=== PATIENT | male | born 1960 | race Hispanic/Latino ===

== ENCOUNTER 2017-12-19 06:56 | Inpatient (IN) | payer MEDICAID, OTHER ==
[2017-12-19 07:11] VITALS: BMI 26.1
--- NOTE | 2017-12-19 08:16 | ED PDOC ---
Lower Extremity Pain/Injury Time Seen by Provider: 12/19/17 07:00 Chief Complaint (Nursing): Lower Extremity Problem/Injury Chief Complaint (Provider): Left knee pain History Per: Patient History/Exam Limitations: no limitations Onset/Duration Of Symptoms: Days (x2 weeks) Current Symptoms Are (Timing): Still Present Additional Complaint(s): 57 year old male presents to the emergency department with complaints of left knee pain onset two weeks prior. Patient has a history of left knee surgery in 2011 to which he states he subsequnetly had to have a spacer put in and have intravenous antibiotics due to an infection s/p surgery. He notes he has been taking Advil for the pain, swelling and intermittent fever, but today the pain became too unbearable. Denies any recent injury or fall. PMD: Geovanny Mcgregor III Past Medical History Reviewed: Historical Data, Nursing Documentation, Vital Signs Vital Signs: Last Vital Signs Temp 98.7 F 12/19/17 07:11 Pulse 106 H 12/19/17 07:11 Resp BP 142/86 12/19/17 07:11 Pulse Ox 98 12/19/17 07:24 - Medical History PMH: Anxiety Denies: Chronic Kidney Disease - Surgical History Other surgeries: total left hip, total left knee, right arm rods placement - Family History Family History: States: Unknown Family Hx - Social History Current smoker - smoking cessation education provided: No Alcohol: None Drugs: Denies - Home Medications Home Medications: Ambulatory Orders Medication Instructions Recorded Ibuprofen [Advil] 400 mg PO Q6 PRN 12/19/17 - Allergies Allergies/Adverse Reactions: Allergies Allergy/AdvReac Type Severity Reaction Status Date / Time codeine Allergy Mild RASH Verified 12/19/17 07:23 morphine Allergy Mild RASH Verified 12/19/17 07:20 Review of Systems ROS Statement: Except As Marked, All Systems Reviewed And Found Negative Constitutional: Positive for: Fever (intermittent) Musculoskeletal: Positive for: Leg Pain (left knee, with swelling) Physical Exam - Reviewed Nursing Documentation Reviewed: Yes Vital Signs Reviewed: Yes - Physical Exam Appears: Positive for: No Acute Distress Head Exam: Positive for: ATRAUMATIC, NORMOCEPHALIC Skin: Positive for: Normal Color, Warm, Dry Eye Exam: Positive for: Normal appearance Neck: Positive for: Normal Cardiovascular/Chest: Positive for: Regular Rate, Rhythm. Negative for: Murmur Respiratory: Positive for: Normal Breath Sounds. Negative for: Accessory Muscle Use, Respiratory Distress Gastrointestinal/Abdominal: Positive for: Normal Exam Extremity: Positive for: Tenderness (diffuse, left knee), Swelling (to left knee ). Negative for: Other (erythema to left knee) Neurologic/Psych: Positive for: Alert (and awake), Oriented (x3) - Laboratory Results Result Diagrams: 12/20/17 04:55 12/20/17 04:55 - ECG O2 Sat by Pulse Oximetry: 98 (RA) Pulse Ox Interpretation: Normal Medical Decision Making Medical Decision Making: Initial Impression: left knee pain rule out infection, evaluation by Dr Mcgregor requested for possible aspiration Time: :18 Initial Plan: --CMP --CBC with differential --Blood culture --Urine culture --Urinalysis --Type and screen --Ortho consult --PT 08:40 Case discussed with ortho ALESSANDRA Cohn, and patient will be admitted to Hospitalist (Dr belia cline) and Dr. Mcgregor will see patient Scribe Attestation: Documented by Bere Shultz, acting as a scribe for Jeramy Sr MD Provider Scribe Attestation: All medical entries made by the Scribe were at my direction and personally dictated by me. I have reviewed the chart and agree that the record accurately reflects my personal performance of the history, physical exam, medical decision making, and the department course for this patient. I have also personally directed, reviewed, and agree with the discharge instructions and disposition. Disposition - Clinical Impression Clinical Impression: Septic joint of left knee joint - Patient ED Disposition Is Patient to be Admitted: Yes - Disposition Disposition Time: 09:00 Condition: FAIR
--- NOTE | 2017-12-19 08:35 | CP.PCM.CON ---
History of Present Illness - History of Present Illness History of Present Illness: Orthopedic consultation Patient is a 57 y/o male with PMH of chronic kidney disease and anxiety, presents to the ER due to severe left knee pain, fevers and swelling. The patient has a history of a partial left knee replacement performed in [address] Mcgregor. In July 2017, the patient was admitted to [facility] due to left knee pain and it was determined that the patient had developed a left knee septic joint. He then subsequently underwent removal of hardware and placement of an antibiotic spacer by another pain management specialist. He was also placed on IV antibiotics postop. Over the past week, he experienced progressive left knee pain and swelling, as well as fevers. The pain is sharp and severe making him unable to place any weight to the LLE or pressure to the left knee. He denies any radiation of pain, numbness or tingling. He also denies CP/SOB/N/V/D/dysuria/melena. Dr. Mcgregor was consulted for orthopedic evaluation. Review of Systems - Review of Systems All systems: reviewed and no additional remarkable complaints except Review of Systems: as per HPI Past Patient History - Past Medical History & Family History Past Medical History?: Yes Past Family History: Reviewed and not pertinent - Past Social History Smoking Status: Never Smoked Alcohol: None Drugs: Denies - CARDIAC Hx Cardiac Disorders: No - PULMONARY Hx Respiratory Disorders: No - NEUROLOGICAL Hx Neurological Disorder: No - HEENT Hx HEENT Problems: No - RENAL Hx Chronic Kidney Disease: Yes - ENDOCRINE/METABOLIC Hx Endocrine Disorders: No - HEMATOLOGICAL/ONCOLOGICAL Hx Blood Disorders: No - INTEGUMENTARY Hx Dermatological Problems: No - MUSCULOSKELETAL/RHEUMATOLOGICAL Hx Musculoskeletal Disorders: Yes Other/Comment: L ZACH, R radius mid shaft fx ORIF, R big toe amputation - GASTROINTESTINAL Hx Gastrointestinal Disorders: No - GENITOURINARY/GYNECOLOGICAL Hx Genitourinary Disorders: No - PSYCHIATRIC Hx Anxiety: Yes - SURGICAL HISTORY Hx Surgeries: Yes Hx Orthopedic Surgery: Yes Other/Comment: L ZACH, R radius mid shaft fx ORIF, R big toe amputation,partial left knee replacement, L knee removal of hardware & placement of antibiotic spacer - ANESTHESIA Hx Anesthesia: Yes Hx Anesthesia Reactions: No Hx Malignant Hyperthermia: No Meds Allergies/Adverse Reactions: Allergies Allergy/AdvReac Type Severity Reaction Status Date / Time codeine Allergy Mild RASH Verified 12/19/17 07:23 morphine Allergy Mild RASH Verified 12/19/17 07:20 - Medications Medications: OTC advil prn Physical Exam - Constitutional Appears: Well, No Acute Distress - Head Exam Head Exam: ATRAUMATIC, NORMOCEPHALIC - Eye Exam Eye Exam: EOMI, Normal appearance, PERRL - ENT Exam ENT Exam: Mucous Membranes Moist, Normal Exam - Respiratory Exam Respiratory Exam: Clear to Auscultation Bilateral, NORMAL BREATHING PATTERN - Cardiovascular Exam Cardiovascular Exam: REGULAR RHYTHM - GI/Abdominal Exam GI & Abdominal Exam: Normal Bowel Sounds, Soft - Extremities Exam Additional comments: L knee: moderate swelling and effusion, old anterior knee scar, + diffuse tenderness, +guarding ROM 0-30 deg sensation intact SP/DP/TN motor intact EHL/FHL/TA/G/Q/HS/HF pedal pulses intact comp soft and NT R knee: no swelling no tenderness, no lesions sensation intact SP/DP/TN motor intact EHL/FHL/TA/G/Q/HS/HF pedal pulses intact comp soft and NT - Neurological Exam Neurological exam: Alert, Oriented x3 - Psychiatric Exam Psychiatric exam: Normal Affect, Normal Mood - Skin Skin Exam: Normal Color, Warm Results - Vital Signs Recent Vital Signs: Last Vital Signs Temp 98.7 F 12/19/17 07:11 Pulse 106 H 12/19/17 07:11 Resp BP 142/86 12/19/17 07:11 Pulse Ox 98 12/19/17 08:32 - Labs Result Diagrams: 12/19/17 09:01 12/19/17 09:01 Assessment & Plan (1) Septic joint of left knee joint Assessment and Plan: Patient is a 57 y/o male with a septic left knee s/p abx spacer placement -NPO -Routine labs, CRP, ESR -Left knee xray and CT -Admit to hospitalist, medical clearance -Consult Dr. Alberto MACK for abx coverage and Dr. Rodriguez for cardiac clearance -Plan for left knee aspiration today and removal of spacer/primary TKA on Tuesday -above d/w Dr. Mcgregor in agreement Status: Acute - Date & Time Date: 12/19/17 Time: 08:34
[2017-12-19 09:13] LABS: BASO % 0.3 % (0.0-2.0); EOS # 0.1 K/uL (0.0-0.7); EOS % 1.6 % (0.0-4.0); HEMOGLOBIN 15.2 g/dL (12.0-18.0); LYMPH # 1.5 K/uL (1.0-4.3); LYMPH % 17.6 % (20.0-40.0); MEAN CELL VOLUME 64.4 fl (80.0-94.0); MEAN CORPUSCULAR HEMOGLOBIN 20.9 pg (27.0-31.0); MEAN CORPUSCULAR HGB CONC 32.5 g/dL (33.0-37.0); MONO # 0.7 K/uL (0.0-0.8); NEUT # 6.2 K/uL (1.8-7.0); NEUT % 72.5 % (50.0-75.0); NRBC % 0.2 % (0.0-0.0); RBC 7.29 Mil/uL (4.40-5.90); WHITE BLOOD COUNT 8.6 K/uL (4.8-10.8)
[2017-12-19 09:16] LABS: URINE BILIRUBIN NEGATIVE (NEGATIVE); URINE BLOOD NEGATIVE (NEGATIVE); URINE CLARITY CLEAR (Clear); URINE COLOR YELLOW (YELLOW); URINE GLUCOSE (UA) NEG (Normal); URINE LEUKOCYTE ESTERASE NEG Leu/uL (Negative); URINE PROTEIN NEGATIVE (NEGATIVE); URINE UROBILINOGEN 0.2-1.0 mg/dL (0.2-1.0)
[2017-12-19] MEDS ORDERED: methylPREDNISolone Depo 80 mg/ml Inj ONE (09:16)
[2017-12-19] MEDS ORDERED: Iohexol 300 100 ML IJ ONE (09:16)
[2017-12-19] MEDS ORDERED: Bupivacaine HCl 0.25% PF (30 ml) Inj ONE (09:18)
--- NOTE | 2017-12-19 09:18 | RAD ---
HISTORY: knee pain COMPARISON: Chest radiograph 07/31/2015. FINDINGS: LUNGS: No active pulmonary disease. PLEURA: No significant pleural effusion identified, no pneumothorax apparent. CARDIOVASCULAR: Normal. OSSEOUS STRUCTURES: No significant abnormalities. VISUALIZED UPPER ABDOMEN: Normal. OTHER FINDINGS: None. IMPRESSION: No interval acute cardiopulmonary disease appreciated.
[2017-12-19 09:19] LABS: INR 0.9 (0.9-1.2)
[2017-12-19 09:36] LABS: ALB/GLOB RATIO 1.1 (1.0-2.1); ALBUMIN 4.1 g/dL (3.5-5.0); ALT/SGPT 35 U/L (21-72); AST/SGOT 25 U/L (17-59); BLOOD UREA NITROGEN 32 mg/dl (9-20); CALCIUM 9.6 mg/dL (8.4-10.2); GFR AFRICAN-AMERICAN > 60; GFR NON-AFRICAN AMERICAN 57
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
[2017-12-19] MEDS ORDERED: HYDROmorphone 0.5 mg/0.5 ml ISec IVP STA (09:53)
[2017-12-19] MEDS ORDERED: HYDROmorphone 0.5 mg/0.5 ml ISec ONE (09:57)
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
[2017-12-19] MEDS ORDERED: Propofol 10 mg/ml Inj (20 ML) ONE (13:40)
[2017-12-19] MEDS ORDERED: Lactated Ringer's 1,000 ML IV ONE (13:40)
[2017-12-19] MEDS ORDERED: Succinylcholine 200 mg/10 ml Inj IV ONE (13:47)
[2017-12-19] MEDS ORDERED: Rocuronium 10 mg/ml (5 ml) ONE ×2 (13:53→14:14)
[2017-12-19] MEDS ORDERED: Bacitracin Ointment 30 GM TUBE ONE (14:26)
[2017-12-19] MEDS ORDERED: Neostigmine 1:1000 (1 mg/ml) Inj ONE (14:35)
--- NOTE | 2017-12-19 14:36 | PCM.SURG1 ---
Surgeon's Initial Post Op Note - Surgeon's Notes Surgeon: Meche Compliance Associate: IGGY Iyer Type of Anesthesia: General Endo Anesthesia Administered By: DR Edgar Pre-Operative Diagnosis: s/.p septic L unicompartmental replacement. r/o recurrent sepsis Operative Findings: as above Post-Operative Diagnosis: r/o septic knee s/p removal L UKR and insertion of abio impreganted spacer Operation Performed: Aspiration arthrogram L knee. Manipulation L knee under anaesthesia. positiion of fluoro/interpetation of video images Specimen/Specimens Removed: aspirate- synvoial fluid/ arthrogram fluid Estimated Blood Loss: EBL {In ML}: 2 Blood Products Given: N/A Drains Used: No Drains Post-Op Condition: Good Date of Surgery/Procedure: 12/19/17 Time of Surgery/Procedure: 14:20 (time in room 1340)
[2017-12-19] MEDS ORDERED: HYDROmorphone 0.5 mg/0.5 ml ISec IVP PRN (14:58)
[2017-12-19] MEDS ORDERED: Lactated Ringer's 1,000 ML IV SCH (15:00)
[2017-12-19 15:57] LABS: FLUID TYPE SYNOVIAL FLUID
--- NOTE | 2017-12-19 16:36 | RAD ---
PROCEDURE: Left Knee Radiographs. HISTORY: Pain. COMPARISON: Left knee CT without contrast 12/19/2017. FINDINGS: BONES: Patient is apparently status post removal of left total knee replacement hardware with antibiotic spacers in position at this time. Spaces are identified with lucency at both articular as well as distal tibial proximal femoral surfaces. Nonspecific hyperdensity is appreciate suprapatellar bursa region this may reflect eluted antibiotic. Diffuse osteopenia suggests osteoporosis. No subluxation or dislocation appreciated. Incidental note is made rated lucency deep to the orthopedic cement overlying the periosteum of the left femoral mid diaphysis. No definite pattern suggest loosening of the tip of endosteal portion of presumed left hip prosthetic device partially captured at its distal segment. JOINTS: As above. JOINT EFFUSION: As above peer OTHER FINDINGS: None. IMPRESSION: Antibiotic spaces identified status post removal of prior replacement hardware with presumed eluted antibiotic hyperdensity in the suprapatellar bursa region. No subluxation or dislocation. Note is made of lucency deep to orthopedic cement at the mid left femoral diaphysis as discussed in body of report.
[2017-12-19 16:38] LABS: SF GROSS APPEARANCE BLOODY (CLEAR)
[2017-12-19 16:39] LABS: SYNOVIAL FLUID COMMENT BLOODY
[2017-12-19 16:55] LABS: SYNOVIAL FLUID MONO/MACROPHAGE 13 % (0-0)
[2017-12-19] MEDS ORDERED: ceFAZolin IV 2 gm in Dextrose 2 GM/50 ML BAG IVPB SCH (17:00)
--- NOTE | 2017-12-19 17:15 | CT ---
PROCEDURE: CT of the left knee without contrast. HISTORY: L knee abx spacer COMPARISON: No prior similar study available for comparison. TECHNIQUE: Axial and reformatted coronal and sagittal CT images of the left knee were obtained without contrast administration. FINDINGS: The patient is status post insertion of antibiotic spacer at the left knee joint space. There is likely prior left knee arthroplasty. There are foci of lucency seen at the distal left femur more prominent at the left femoral condyle. There are also subcortical and subchondral cystic formation seen at the left tibial plateau . There is partially imaged hardware at the mid and proximal left femur. Diffuse vascular calcification is noted. There is soft tissue edema and possible small fluid around the left knee joint. No evidence of acute fracture in the osseous structures. IMPRESSION: Status post antibiotic spacer insertion at the left knee joint. Chronic changes and multiple lytic/cystic changes noted mainly at the medial femoral condyle as described above.
[2017-12-19] MEDS: HYDROmorphone 0.5 mg/0.5 ml ISec IVP PRN ×2 (17:51→22:17)
--- NOTE | 2017-12-19 17:56 | CP.PCM.PN ---
Subjective - Date & Time of Evaluation Date of Evaluation: 12/19/17 Time of Evaluation: 17:51 - Subjective Subjective: i d note emr reviewed vancomycin started Objective - Vital Signs/Intake and Output Vital Signs (last 24 hours): Temp Pulse Resp BP Pulse Ox 97.8 F 71 20 137/82 97 12/19/17 16:42 12/19/17 16:42 12/19/17 16:42 12/19/17 16:42 12/19/17 16:42 Intake and Output: 12/19/17 12/19/17 06:59 18:59 Intake Total 300 Balance 300 - Medications Medications: Current Medications Acetaminophen (Tylenol 325mg Tab) 650 mg PO Q6 PRN PRN Reason: Fever >100.4 F Acetaminophen (Tylenol 325mg Tab) 650 mg PO Q6 PRN PRN Reason: Pain, Mild (1-3) Acetaminophen (Tylenol 325mg Tab) 650 mg PO Q4 PRN PRN Reason: Fever 101 degrees fahrenheit Docusate Sodium (Colace) 100 mg PO BID [facility]AY Hydromorphone HCl (Dilaudid) 1 mg IVP Q4 PRN PRN Reason: Pain, severe (8-10) Sodium Chloride (Sodium Chloride 0.9%) 1,000 mls @ 100 mls/hr IV .Q10H [facility]AY Lactated Ringer's (Lactated Ringer's) 1,000 mls @ 100 mls/hr IV .Q10H [facility] Cefazolin Sodium/Dextrose (Ancef Iv 2 Gm Duplex) 2 gm in 50 mls @ 50 mls/hr IVPB Q8 [facility]AY PRN Reason: Protocol Stop: 12/20/17 01:59 Lactated Ringer's (Lactated Ringer's) 1,000 mls @ 100 mls/hr IV .Q10H [facility] Vancomycin HCl 750 mg/ Sodium (Chloride) 250 mls @ 166.667 mls/hr IVPB Q12 [facility]AY PRN Reason: Protocol Ketorolac Tromethamine (Toradol) 30 mg IVP Q6 PRN PRN Reason: Pain, severe (8-10) Ondansetron HCl (Zofran Inj) 4 mg IVP Q6 PRN PRN Reason: Nausea/Vomiting Ondansetron HCl (Zofran Inj) 4 mg IVP ONCE PRN PRN Reason: Nausea/Vomiting Oxycodone/Acetaminophen (Percocet 5/325 Mg Tab) 2 tab PO Q6 PRN PRN Reason: Pain, severe (8-10) Stop: 12/22/17 16:17 Pantoprazole Sodium (Protonix Ec Tab) 40 mg PO DAILY JAY - Labs Labs: 12/19/17 09:01 12/19/17 09:01 PT 10.0 Seconds (9.8-13.1) 12/19/17 09:01 INR 0.9 (0.9-1.2) 12/19/17 09:01
[2017-12-19] MEDS: Lactated Ringer's 1,000 ML IV SCH (18:25)
[2017-12-19] MEDS: ceFAZolin IV 2 gm in Dextrose 2 GM/50 ML BAG IVPB SCH (22:00)
[2017-12-19] MEDS: Sodium Chloride 0.9% 1,000 ML IV SCH (22:00)
--- NOTE | 2017-12-19 22:29 | CARD ---
APPROVED REPORT EKG Measurement Heart [id number] <Conclusion> Normal sinus rhythm Normal ECG
[2017-12-20] MEDS: Lactated Ringer's 1,000 ML IV SCH (01:00)
[2017-12-20] MEDS: Sodium Chloride 0.9% 1,000 ML IV SCH ×4 (02:53→20:00)
[2017-12-20] MEDS: HYDROmorphone 0.5 mg/0.5 ml ISec IVP PRN ×2 (02:55→09:47)
[2017-12-20] MEDS: ceFAZolin IV 2 gm in Dextrose 2 GM/50 ML BAG IVPB SCH (05:35)
[2017-12-20 06:15] LABS: BASO % 0.1 % (0.0-2.0); EOS # 0.1 K/uL (0.0-0.7); EOS % 1.8 % (0.0-4.0); HEMOGLOBIN 13.7 g/dL (12.0-18.0); LYMPH # 1.7 K/uL (1.0-4.3); LYMPH % 21.1 % (20.0-40.0); MEAN CELL VOLUME 64.9 fl (80.0-94.0); MEAN CORPUSCULAR HEMOGLOBIN 20.7 pg (27.0-31.0); MONO # 0.6 K/uL (0.0-0.8); MONO % 6.9 % (0.0-10.0); NEUT # 5.6 K/uL (1.8-7.0); NEUT % 70.1 % (50.0-75.0); NRBC % 0.1 % (0.0-0.0); RBC 6.61 Mil/uL (4.40-5.90); RED CELL DISTRIBUTION WIDTH 15.9 % (11.5-14.5)
[2017-12-20 06:19] LABS: BLOOD UREA NITROGEN 28 mg/dl (9-20); GFR AFRICAN-AMERICAN > 60; GFR NON-AFRICAN AMERICAN 53
--- NOTE | 2017-12-20 07:43 | CP.PCM.PN ---
Subjective - Date & Time of Evaluation Date of Evaluation: 12/20/17 Time of Evaluation: 07:43 - Subjective Subjective: Patient was seen and examined at bedside comfortable. Pain is well controlled. No acute events overnight. Objective - Vital Signs/Intake and Output Vital Signs (last 24 hours): Temp Pulse Resp BP Pulse Ox 98.0 F 68 19 116/69 98 12/20/17 00:00 12/20/17 00:00 12/20/17 00:00 12/20/17 00:00 12/20/17 00:00 Intake and Output: 12/20/17 12/20/17 06:59 18:59 Output Total 800 Balance -800 - Medications Medications: Current Medications Acetaminophen (Tylenol 325mg Tab) 650 mg PO Q6 PRN PRN Reason: Fever >100.4 F Acetaminophen (Tylenol 325mg Tab) 650 mg PO Q6 PRN PRN Reason: Pain, Mild (1-3) Acetaminophen (Tylenol 325mg Tab) 650 mg PO Q4 PRN PRN Reason: Fever 101 degrees fahrenheit Docusate Sodium (Colace) 100 mg PO BID [facility] Last Admin: 12/19/17 19:29 Dose: 100 mg Hydromorphone HCl (Dilaudid) 1 mg IVP Q4 PRN PRN Reason: Pain, severe (8-10) Last Admin: 12/20/17 02:55 Dose: 1 mg Sodium Chloride (Sodium Chloride 0.9%) 1,000 mls @ 100 mls/hr IV .Q10H [facility] Last Admin: 12/20/17 02:53 Dose: 100 mls/hr Lactated Ringer's (Lactated Ringer's) 1,000 mls @ 100 mls/hr IV .Q10H [facility] Last Admin: 12/20/17 01:00 Dose: Not Given Lactated Ringer's (Lactated Ringer's) 1,000 mls @ 100 mls/hr IV .Q10H [facility] Last Admin: 12/20/17 01:00 Dose: Not Given Vancomycin HCl 750 mg/ Sodium (Chloride) 250 mls @ 166.667 mls/hr IVPB Q12 [facility] PRN Reason: Protocol Last Admin: 12/19/17 21:17 Dose: 166.667 mls/hr Ketorolac Tromethamine (Toradol) 30 mg IVP Q6 PRN PRN Reason: Pain, severe (8-10) Ondansetron HCl (Zofran Inj) 4 mg IVP Q6 PRN PRN Reason: Nausea/Vomiting Ondansetron HCl (Zofran Inj) 4 mg IVP ONCE PRN PRN Reason: Nausea/Vomiting Oxycodone/Acetaminophen (Percocet 5/325 Mg Tab) 2 tab PO Q6 PRN PRN Reason: Pain, severe (8-10) Stop: 12/22/17 16:17 Pantoprazole Sodium (Protonix Ec Tab) 40 mg PO DAILY JAY - Labs Labs: 12/20/17 04:55 12/20/17 04:55 PT 10.0 Seconds (9.8-13.1) 12/19/17 09:01 INR 0.9 (0.9-1.2) 12/19/17 09:01 - Extremities Exam Additional comments: L knee: Knee imm intact, Dressings CDI, no tenderness ROM restricted sensation intact SP/DP/TN motor intact EHL/FHL/TA/G pedal pulses intact comp soft NT Assessment and Plan (1) Septic joint of left knee joint Assessment & Plan: POD#1 L knee aspiration under fluoroscopy -f/u cultures, neg to date -pain control -PWB with walker -plan for L TKA tomorrow -NPO pMN -DVT ppx on hold -above jolie Mcgregor in agreement Status: Acute
[2017-12-20] MEDS: Pantoprazole 40 mg EC Tab PO SCH (08:17)
--- NOTE | 2017-12-20 11:02 | OP ---
PROCEDURE DATE: 12/19/2017 PREOPERATIVE DIAGNOSIS: Status post septic left unicompartmental replacement, rule out recurrent sepsis. POSTOPERATIVE DIAGNOSIS: Rule out septic knee, status post removal of left unicompartmental replacement and insertion of antibiotic-impregnated spacer. OPERATIVE FINDINGS: Rule out septic knee status post removal of left unicompartmental replacement and insertion of antibiotic-impregnated spacer. OPERATION PERFORMED: 1. Aspiration arthrogram, left knee. 2. Manipulation of left knee under anesthesia. 3. Positioning of fluoroscope and interpretation of video images. SURGEON: Geovanny Mcgregor MD REGIONAL SALES ENGINEER: Nisha Faith, certified registered nursing first aid trainer. ANESTHESIA: General endotracheal anesthesia. SPECIMENS REMOVED: Aspirate, synovial fluid/arthrography fluid. BLOOD LOSS: 2 mL. BLOOD PRODUCTS GIVEN: None. DRAINS: No drains. POSTOPERATIVE CONDITION: Stable. TIME OF SURGERY: 14:20, incision time, in the room 13:40. OPERATIVE INDICATION: Mg Barnett is a 57-year-old gentleman who had undergone successful unicompartmental left knee replacement. The patient had presented to another institution and had removal of the prosthesis and insertion of an antibiotic-impregnated spacer. The patient presents now to [facility] with questionable fever, severe pain in the knee, crepitus, inability to ambulate and stumbling in the left knee. The patient is admitted and taken to the operating room as an emergency for aspiration of the knee with reimplantation and a revision arthroplasty procedure. Pros, cons, risks, and benefits of the same were discussed with the patient, the possibility of mechanical failure, infection, thromboembolic disease, secondary or tertiary surgery was discussed. The patient can no longer withstand the discomfort and wished the surgery to be accomplished. OPERATIVE PROCEDURE: After having obtained informed consent in the above fashion, after the satisfactory induction of the anesthetic, after having identified side, site, and procedure and a critical pause/time-out, after the satisfactory induction of the anesthetic, the patient identified as Mg Barnett in the supine position with all bony prominences well padded, the left lower extremity was prepped and free draped in usual fashion for left hip arthrography. The possibility of nerve injury, mechanical failure, infection, thromboembolic disease were discussed. The patient no longer withstand the discomfort and wishes the revision to be accomplished. It was explained to him that the revision cannot be accomplished until the aspiration was accomplished. Again after sterilely prepping and draping, under the surgeon's direction, the fluoroscope was positioned, video images were generated, therapeutic decisions were made therefrom. This having been accomplished from a superolateral portal, the left knee is injected with 30 mL of radiopaque contrast, both in the superolateral portal and an infrapatellar lateral portal. This having been accomplished, the thigh having been introduced, flexion/extension is accomplished and great care was taken at this point in time to aspirate the knee. The knee was aspirated. Under the surgeon's direction, the fluoroscope was positioned, video images were generated, therapeutic decisions were made therefrom. The fact that fluid is localized in the knee joint space is confirmed. The knee was aspirated and the aliquots of fluid were sent for aerobic, anaerobic, AFB, and fungal cultures as well as stat Gram stain, number of white cells per high-power field. This having been accomplished, the fluid having been sent, the knee is manipulated. Compression dressing was applied. Neurocirculatory status intact in recovery. Awaiting results of culture prior to planning the revision arthroplasty. Geovanny Mcgregor MD
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
--- NOTE | 2017-12-20 11:51 | CP.PCM.PN ---
Subjective - Date & Time of Evaluation Date of Evaluation: 12/20/16 Time of Evaluation: 11:00 - Subjective Subjective: NO CHEST PAIN OR SOB JUST HAS LEFT KNEE SURGICAL SITE PAIN Objective - Vital Signs/Intake and Output Vital Signs (last 24 hours): Temp Pulse Resp BP Pulse Ox 98.3 F 83 19 119/78 98 12/20/17 07:57 12/20/17 09:45 12/20/17 07:57 12/20/17 07:57 12/20/17 10:07 Intake and Output: 12/20/17 12/20/17 06:59 18:59 Output Total 800 Balance -800 - Medications Medications: Current Medications Acetaminophen (Tylenol 325mg Tab) 975 mg PO Q8 [facility]AY Acetaminophen (Tylenol 325mg Tab) 650 mg PO Q6 PRN PRN Reason: FEVER > 100.3 Docusate Sodium (Colace) 100 mg PO BID [facility] Last Admin: 12/20/17 08:17 Dose: 100 mg Vancomycin HCl 750 mg/ Sodium (Chloride) 250 mls @ 166.667 mls/hr IVPB Q12 [facility]AY PRN Reason: Protocol Last Admin: 12/20/17 08:15 Dose: 166.667 mls/hr Sodium Chloride (Sodium Chloride 0.9%) 1,000 mls @ 125 mls/hr IV .Q8H [facility] Ondansetron HCl (Zofran Inj) 4 mg IVP Q6 PRN PRN Reason: Nausea/Vomiting Ondansetron HCl (Zofran Inj) 4 mg IVP ONCE PRN PRN Reason: Nausea/Vomiting Oxycodone/Acetaminophen (Percocet 5/325 Mg Tab) 2 tab PO Q6 PRN PRN Reason: Pain, severe (8-10) Stop: 12/22/17 16:17 Pantoprazole Sodium (Protonix Ec Tab) 40 mg PO DAILY [facility] Last Admin: 12/20/17 08:17 Dose: 40 mg - Labs Labs: 12/20/17 04:55 12/20/17 04:55 PT 10.0 Seconds (9.8-13.1) 12/19/17 09:01 INR 0.9 (0.9-1.2) 12/19/17 09:01 - Respiratory Exam Respiratory Exam: Clear to Ausculation Bilateral - Cardiovascular Exam Cardiovascular Exam: REGULAR RHYTHM, +S1, +S2 - Extremities Exam Additional comments: LLE IN IMMOBILIZER - Additional Findings Additional findings: OR NOTES FROM 12/19/17 WERE REVIEWED AND PATIENT HAD ASPIRATION AND MANIPULATION OF THE LEFT KNEE Assessment and Plan - Assessment and Plan (Free Text) Assessment: S/P LLE TKR SEVERAL YEARS AGO WITH EXPLANTATION 2018 FOR INFECTION STABLE Plan: THE PATIENT IS CLEARED FOR SURGERY TOMORROW
--- NOTE | 2017-12-20 12:09 | RAD ---
PROCEDURE: Fluoroscopy up to 1 hr. HISTORY: ARTHROGRAM COMPARISON: None TECHNIQUE: Standard protocol for this study/examination. FINDINGS: Total fluoroscopic time (continuous mode) utilized during the procedure (seconds) 9.5. Total exam DLP: (mGy) 0.42. IMPRESSION: Less than 1 hr fluoroscopic time utilized during performance of the procedure. 0
--- NOTE | 2017-12-20 15:13 | CP.PCM.PN ---
Subjective - Date & Time of Evaluation Date of Evaluation: 12/19/17 Time of Evaluation: 15:04 - Subjective Subjective: I D NOTE HAVE REVIEWED,HISTORY,LABS AND DISCUSSED c AT THIS TIME PATIENT SHOULD NOT HAVE TKR. WOULD RX c 4 MORE WEEK OF IV VANCOMYCIN AND RE EVALUATE AT THAT TIME Objective - Vital Signs/Intake and Output Vital Signs (last 24 hours): Temp Pulse Resp BP Pulse Ox 98.3 F 83 19 119/78 98 12/20/17 07:57 12/20/17 09:45 12/20/17 07:57 12/20/17 07:57 12/20/17 10:07 Intake and Output: 12/20/17 12/20/17 06:59 18:59 Output Total 800 Balance -800 - Medications Medications: Current Medications Acetaminophen (Tylenol 325mg Tab) 975 mg PO Q8 [facility] Acetaminophen (Tylenol 325mg Tab) 650 mg PO Q6 PRN PRN Reason: FEVER > 100.3 Docusate Sodium (Colace) 100 mg PO BID [facility] Last Admin: 12/20/17 08:17 Dose: 100 mg Vancomycin HCl 750 mg/ Sodium (Chloride) 250 mls @ 166.667 mls/hr IVPB Q12 [facility]AY PRN Reason: Protocol Last Admin: 12/20/17 08:15 Dose: 166.667 mls/hr Sodium Chloride (Sodium Chloride 0.9%) 1,000 mls @ 125 mls/hr IV .Q8H [facility] Ondansetron HCl (Zofran Inj) 4 mg IVP Q6 PRN PRN Reason: Nausea/Vomiting Ondansetron HCl (Zofran Inj) 4 mg IVP ONCE PRN PRN Reason: Nausea/Vomiting Oxycodone/Acetaminophen (Percocet 5/325 Mg Tab) 2 tab PO Q6 PRN PRN Reason: Pain, severe (8-10) Stop: 12/22/17 16:17 Pantoprazole Sodium (Protonix Ec Tab) 40 mg PO DAILY [facility] Last Admin: 12/20/17 08:17 Dose: 40 mg - Labs Labs: 12/20/17 04:55 12/20/17 04:55 PT 10.0 Seconds (9.8-13.1) 12/19/17 09:01 INR 0.9 (0.9-1.2) 12/19/17 09:01
[2017-12-20] MEDS: Oxycodone/Acetaminophen 5/325 mg Tab PO PRN (15:27)
--- NOTE | 2017-12-20 15:38 | CP.PCM.PN ---
Subjective - Date & Time of Evaluation Date of Evaluation: 12/20/17 Time of Evaluation: 15:38 - Subjective Subjective: ID noted patient needs 4 more weeks IV Vanco, surgery cancelled for tomorrow. Will arrange for PICC and antibiotics. Dr. Mcgregor and Dr. Valladares aware. Objective - Vital Signs/Intake and Output Vital Signs (last 24 hours): Temp Pulse Resp BP Pulse Ox 98.3 F 83 19 119/78 98 12/20/17 07:57 12/20/17 09:45 12/20/17 07:57 12/20/17 07:57 12/20/17 10:07 Intake and Output: 12/20/17 12/20/17 06:59 18:59 Output Total 800 Balance -800 - Medications Medications: Current Medications Acetaminophen (Tylenol 325mg Tab) 975 mg PO Q8 [facility] Acetaminophen (Tylenol 325mg Tab) 650 mg PO Q6 PRN PRN Reason: FEVER > 100.3 Docusate Sodium (Colace) 100 mg PO BID [facility] Last Admin: 12/20/17 08:17 Dose: 100 mg Vancomycin HCl 750 mg/ Sodium (Chloride) 250 mls @ 166.667 mls/hr IVPB Q12 [facility] PRN Reason: Protocol Last Admin: 12/20/17 08:15 Dose: 166.667 mls/hr Sodium Chloride (Sodium Chloride 0.9%) 1,000 mls @ 125 mls/hr IV .Q8H [facility] Last Admin: 12/20/17 12:00 Dose: 125 mls/hr Ondansetron HCl (Zofran Inj) 4 mg IVP Q6 PRN PRN Reason: Nausea/Vomiting Ondansetron HCl (Zofran Inj) 4 mg IVP ONCE PRN PRN Reason: Nausea/Vomiting Oxycodone/Acetaminophen (Percocet 5/325 Mg Tab) 2 tab PO Q6 PRN PRN Reason: Pain, severe (8-10) Stop: 12/22/17 16:17 Last Admin: 12/20/17 15:27 Dose: 2 tab Pantoprazole Sodium (Protonix Ec Tab) 40 mg PO DAILY [facility] Last Admin: 12/20/17 08:17 Dose: 40 mg - Labs Labs: 12/20/17 04:55 12/20/17 04:55 PT 10.0 Seconds (9.8-13.1) 12/19/17 09:01 INR 0.9 (0.9-1.2) 12/19/17 09:01
[2017-12-20] MEDS ORDERED: Oxycodone/Acetaminophen 5/325 mg Tab PO ONE (20:13)
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
[2017-12-21 06:49] LABS: BASO % 0.4 % (0.0-2.0); EOS # 0.2 K/uL (0.0-0.7); EOS % 2.8 % (0.0-4.0); HEMOGLOBIN 13.3 g/dL (12.0-18.0); LYMPH # 1.3 K/uL (1.0-4.3); LYMPH % 20.9 % (20.0-40.0); MEAN CORPUSCULAR HEMOGLOBIN 20.5 pg (27.0-31.0); MEAN CORPUSCULAR HGB CONC 31.5 g/dL (33.0-37.0); MEAN PLATELET VOLUME 9.2 fl (7.2-11.7); MONO # 0.5 K/uL (0.0-0.8); NEUT # 4.2 K/uL (1.8-7.0); NEUT % 67.9 % (50.0-75.0); NRBC % 0.2 % (0.0-0.0); RBC 6.51 Mil/uL (4.40-5.90); RED CELL DISTRIBUTION WIDTH 15.7 % (11.5-14.5); WHITE BLOOD COUNT 6.2 K/uL (4.8-10.8)
[2017-12-21 07:23] LABS: ALB/GLOB RATIO 1.1 (1.0-2.1); ALBUMIN 3.3 g/dL (3.5-5.0); ALT/SGPT 22 U/L (21-72); AST/SGOT 15 U/L (17-59); BLOOD UREA NITROGEN 29 mg/dl (9-20); CALCIUM 8.9 mg/dL (8.4-10.2); GFR AFRICAN-AMERICAN > 60; GFR NON-AFRICAN AMERICAN 57
[2017-12-21] MEDS: Oxycodone/Acetaminophen 5/325 mg Tab PO PRN ×2 (07:26→17:36)
--- NOTE | 2017-12-21 07:48 | CP.PCM.PN ---
Subjective - Date & Time of Evaluation Date of Evaluation: 12/21/17 Time of Evaluation: 07:48 - Subjective Subjective: Patient seen and examined at bedside comfortable. No complaints of pain. No other complaints. Objective - Vital Signs/Intake and Output Vital Signs (last 24 hours): Temp Pulse Resp BP Pulse Ox 97.8 F 79 19 124/79 99 12/21/17 00:00 12/21/17 00:00 12/21/17 00:00 12/21/17 00:00 12/21/17 00:00 - Medications Medications: Current Medications Acetaminophen (Tylenol 325mg Tab) 975 mg PO Q8 [facility] Last Admin: 12/21/17 01:10 Dose: 975 mg Acetaminophen (Tylenol 325mg Tab) 650 mg PO Q6 PRN PRN Reason: FEVER > 100.3 Docusate Sodium (Colace) 100 mg PO BID [facility] Last Admin: 12/20/17 17:35 Dose: 100 mg Vancomycin HCl 750 mg/ Sodium (Chloride) 250 mls @ 166.667 mls/hr IVPB Q12 [facility] PRN Reason: Protocol Last Admin: 12/20/17 20:33 Dose: 166.667 mls/hr Sodium Chloride (Sodium Chloride 0.9%) 1,000 mls @ 125 mls/hr IV .Q8H [facility] Last Admin: 12/20/17 20:00 Dose: Not Given Ondansetron HCl (Zofran Inj) 4 mg IVP Q6 PRN PRN Reason: Nausea/Vomiting Ondansetron HCl (Zofran Inj) 4 mg IVP ONCE PRN PRN Reason: Nausea/Vomiting Oxycodone/Acetaminophen (Percocet 5/325 Mg Tab) 2 tab PO Q6 PRN PRN Reason: Pain, severe (8-10) Stop: 12/22/17 16:17 Last Admin: 12/21/17 07:26 Dose: 2 tab Pantoprazole Sodium (Protonix Ec Tab) 40 mg PO DAILY [facility] Last Admin: 12/20/17 08:17 Dose: 40 mg - Labs Labs: 12/21/17 05:50 12/21/17 05:50 PT 10.0 Seconds (9.8-13.1) 12/19/17 09:01 INR 0.9 (0.9-1.2) 06/04/18 09:01 - Extremities Exam Additional comments: L knee: Knee imm intact, Dressings CDI, Dressings removed revealing healed aspiration site, no tenderness ROM restricted sensation intact SP/DP/TN motor intact EHL/FHL/TA/G pedal pulses intact comp soft NT Assessment and Plan (1) Septic joint of left knee joint Assessment & Plan: POD#2 L knee aspiration under fluoroscopy -Not cleared by ID, requires 4 additional weeks of IV vanco -PICC line insertion -PWB with walker -maintain knee imm until patient's office visit -clear to discharge from orthopedic standpoint -above jolie Mcgregor in agreement Status: Acute
[2017-12-21] MEDS: Pantoprazole 40 mg EC Tab PO SCH (08:23)
--- NOTE | 2017-12-21 09:26 | CP.PCM.PN ---
Subjective - Date & Time of Evaluation Date of Evaluation: 12/21/17 Time of Evaluation: 08:30 - Subjective Subjective: NO COMPLAINTS OF CHEST PAIN OR SOB PAIN AT LEFT KNEE Objective - Vital Signs/Intake and Output Vital Signs (last 24 hours): Temp Pulse Resp BP Pulse Ox 97.5 F L 92 H 18 130/83 94 L 12/21/17 08:28 12/21/17 08:28 12/21/17 08:28 12/21/17 08:28 12/21/17 08:28 - Medications Medications: Current Medications Acetaminophen (Tylenol 325mg Tab) 975 mg PO Q8 [facility] Last Admin: 12/21/17 01:10 Dose: 975 mg Acetaminophen (Tylenol 325mg Tab) 650 mg PO Q6 PRN PRN Reason: FEVER > 100.3 Docusate Sodium (Colace) 100 mg PO BID [facility] Last Admin: 12/21/17 08:27 Dose: 100 mg Vancomycin HCl 750 mg/ Sodium (Chloride) 250 mls @ 166.667 mls/hr IVPB Q12 [facility] PRN Reason: Protocol Last Admin: 12/21/17 08:24 Dose: 166.667 mls/hr Sodium Chloride (Sodium Chloride 0.9%) 1,000 mls @ 125 mls/hr IV .Q8H [facility] Last Admin: 12/20/17 20:00 Dose: Not Given Ondansetron HCl (Zofran Inj) 4 mg IVP Q6 PRN PRN Reason: Nausea/Vomiting Ondansetron HCl (Zofran Inj) 4 mg IVP ONCE PRN PRN Reason: Nausea/Vomiting Oxycodone/Acetaminophen (Percocet 5/325 Mg Tab) 2 tab PO Q6 PRN PRN Reason: Pain, severe (8-10) Stop: 12/22/17 16:17 Last Admin: 12/21/17 07:26 Dose: 2 tab Pantoprazole Sodium (Protonix Ec Tab) 40 mg PO DAILY [facility] Last Admin: 12/21/17 08:23 Dose: 40 mg - Labs Labs: 12/21/17 05:50 12/21/17 05:50 PT 10.0 Seconds (9.8-13.1) 12/19/17 09:01 INR 0.9 (0.9-1.2) 12/19/17 09:01 - Respiratory Exam Respiratory Exam: Clear to Ausculation Bilateral - Cardiovascular Exam Cardiovascular Exam: REGULAR RHYTHM, +S1, +S2 - Additional Findings Additional findings: ORTHO NOTE SEEN ID NOTE SEEN Assessment and Plan - Assessment and Plan (Free Text) Assessment: S/P ASPIRATION AND MANIPULATION OF LEFT KNEE Plan: ID HAS RECOMMENDED 4 WEEKS OF IV VANCOMYCIN BEFORE LEFT TKR
[2017-12-21] MEDS ORDERED: LIDOCAINE 2% 10ML 20 MG/ML VIAL IJ ONE (11:39)
[2017-12-21 11:54] LABS: PROLACTIN 7.3 ng/mL (3.7-17.9)
--- NOTE | 2017-12-21 12:28 | PCM.SURG1 ---
Surgeon's Initial Post Op Note - Surgeon's Notes Surgeon: Peyman Peter MD Supervisor Hospitality House: NONE Type of Anesthesia: Local Pre-Operative Diagnosis: Poor venous access Operative Findings: US showed patent left brachial vein Post-Operative Diagnosis: Poor venous access Operation Performed: Single lumen picc left brachial vein, 43 cm. Tip is in the SVC. Specimen/Specimens Removed: None Estimated Blood Loss: EBL {In ML}: 0 Blood Products Given: N/A Drains Used: No Drains Post-Op Condition: Fair Date of Surgery/Procedure: 12/21/17 Time of Surgery/Procedure: 12:20
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
[2017-12-21 15:58] VITALS: BP 140/86; PULSE 85; RESP 18; TEMP 98.1; O2SAT 94
--- NOTE | 2017-12-21 19:32 | PN ---
DATE: 12/21/2017 ENDO FOLLOWUP NOTE LOCATION: Room 654. SUBJECTIVE: This is a 57-year-old male admitted with an infected and septic left knee joint and currently undergoing IV antibiotic management and is also now being followed closely for metabolic management. He has significant history of secondary hypogonadism and has been on testosterone replacement therapy as given. He was actually scheduled for left knee replacement surgery, but this has been deferred at this time because of the persistent infection in the left foot area as noted. His latest chemistry showed BUN of 29, sodium of 140, potassium of 4.5, chloride of 107, CO2 of 23, glucose of 107, and creatinine of 1.3. His luteinizing hormone is 13.3 with the follicle stimulating hormone level of 16 and TSH level of 1.30 and a prolactin of 7.3 and a cortisol of 5.4 mcg/dL. ASSESSMENT AND PLAN: This is a 57-year-old male with left septic knee joint infection and actually is possibly scheduled for left total knee replacement if his infection is cleared thereof. He also has significant history of hypogonadism and review of his hormonal profile undertaken in this hospital showed that we are actually dealing with primary hypogonadism with a high total luteinizing hormone and follicle stimulating hormone. The testosterone levels are still at this time. We will obtain serial chemistries and supplement accordingly as needed. We will follow. Erica Hdz MD
--- NOTE | 2017-12-22 10:38 | VASCULAR ---
PROCEDURE: Date of procedure: 12/21/2017 Procedure: 1. Placement of a left arm PICC with ultrasound and fluoroscopic guidance, CPT 33752 2. PICC tip confirmation with spot radiograph and is in the superior vena cava Medications: 1 percent lidocaine Total Fluoro time: 6.6 seconds Radiation: 0.97 MGy EBL: 3 cc HISTORY: Infection requiring long-term IV antibiotics TECHNIQUE: Following informed consent and procedure time-out, the patient placed supine on the interventional table and the left arm prepped and draped in the usual sterile fashion. Ultrasound showed a patent and compressible left basilic vein. After the skin was anesthetized with lidocaine, the basilic vein was accessed with micro micropuncture technique using ultrasound guidance. A guidewire was then advanced under fluoroscopic guidance into the superior vena cava. An image documenting ultrasound guidance for vascular access was permanently saved. The length of a single-lumen 4 [place] PICC was trimmed to 43 cm and advanced through a peel-away sheath. The PICC was position with tip of PICC confirm a spot radiograph the superior vena cava. The PICC was secured to the patient's skin. The PICC was flushed. A biopatch and sterile dressing was applied. IMPRESSION: Placement of a single-lumen 4 [place] PICC left basilic vein trimmed to 43 cm. The tip of the PICC is confirmed with spot radiograph and is in the superior vena cava.
== END 2017-12-21 19:40 | disposition home or self-care (01) | DRG 242 ==
LOC: H.ER 06:56 → H.ERHOLD 08:45 → H.MEDSURG1 11:51
PROVIDERS: ADMIT Hospitalist; ATTEND Hospitalist
PROC: BQ0 Imaging, Non-Axial Lower Bones, Plain Radiography (ICD-10-PCS; 2017-12-19)
PROC: 0SSDXZZ Reposition Left Knee Joint, External Approach (ICD-10-PCS; 2017-12-19)
PROC: 0S9D0ZX Drainage of Left Knee Joint, Open Approach, Diagnostic (ICD-10-PCS; principal; 2017-12-19 11:15)
PROC: 02HV33Z Insertion of Infusion Device into Superior Vena Cava, Percutaneous Approach (ICD-10-PCS; 2017-12-21)
DX: M00.862 Arthritis due to other bacteria, left knee (principal); N18.9 Chronic kidney disease, unspecified; E11.22 Type 2 diabetes mellitus with diabetic chronic kidney disease; F41.9 Anxiety disorder, unspecified; I12.9 Hypertensive chronic kidney disease with stage 1 through stage 4 chronic kidney disease, or unspecified chronic kidney disease; E29.1 Testicular hypofunction; Z96.652 Presence of left artificial knee joint; B35.1 Tinea unguium

== ENCOUNTER 2018-05-01 06:53 | Inpatient (IN) | payer OTHER ==
[2018-04-28 13:11] VITALS: BMI 33.2
[2018-05-01] MEDS ORDERED: Propofol 10 mg/ml Inj (20 ML) ONE (07:03)
[2018-05-01] MEDS ORDERED: Lidocaine 4% (Laryng-O-Jet) Kit MM ONE (07:03)
[2018-05-01] MEDS ORDERED: Sevoflurane - Inhalation Anesthetic Liq (250 ml) ONE (07:03)
[2018-05-01] MEDS ORDERED: Rocuronium 10 mg/ml (5 ml) ONE ×2 (07:03→09:06)
[2018-05-01] MEDS ORDERED: Neostigmine 1:1000 (1 mg/ml) Inj ONE (07:03)
[2018-05-01] MEDS ORDERED: Succinylcholine 200 mg/10 ml Inj IV ONE (07:03)
[2018-05-01] MEDS ORDERED: Bupivacaine HCl 0.25% PF (30 ml) Inj ONE (07:19)
[2018-05-01] MEDS ORDERED: EPINEPHrine 1 mg/ml (1:1000) Inj ONE (07:21)
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
[2018-05-01] MEDS ORDERED: Lactated Ringer's 1,000 ML IV ONE ×3 (07:40→12:45)
[2018-05-01] MEDS ORDERED: Bacitracin Ointment 30 GM TUBE ONE (07:41)
[2018-05-01] MEDS ORDERED: Thrombin Topical 5,000 Int Units Spray Kit ONE (07:41)
[2018-05-01] MEDS ORDERED: Absorbable Gelatin Sponge Size 12-7 ONE (07:41)
[2018-05-01] MEDS ORDERED: Tranexamic Acid 1,000 MG in Sodium Chloride 0.9% 100 ML IVPB STA (07:42)
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
[2018-05-01] MEDS ORDERED: Midazolam 2 MG/2 ML VIAL ONE (08:03)
[2018-05-01] MEDS ORDERED: Sodium Chloride 0.9% 1,000 ML IV ONE (08:30)
[2018-05-01] MEDS ORDERED: Ketamine 50 mg/ml Inj (10 ml) ONE (08:47)
[2018-05-01 10:05] LABS: FLUID TYPE SYNOVIAL FLUID
[2018-05-01 10:58] LABS: SF GROSS APPEARANCE CLOUDY (CLEAR)
[2018-05-01 10:59] LABS: SYNOVIAL FLUID COMMENT CLOUDY
--- NOTE | 2018-05-01 12:14 | PCM.SURG1 ---
Surgeon's Initial Post Op Note - Surgeon's Notes Surgeon: Meche Auto Driver: IGGY Sloan/ 2nd aby Bardales Type of Anesthesia: General Endo, Block Regional Anesthesia Administered By: DR leon birmingham Pre-Operative Diagnosis: s/p septic L TKR Operative Findings: s/p septic L TKR with insertion of abio impreganted spacer. synovitis anterior and posterior. posterior capsular contracture. lateral patella contracture Post-Operative Diagnosis: as above Operation Performed: [id number] L TKR. repair/reinforcemnt L patella ligamnet. anterior and posterior synovectomy. posterior capsular release. lateral patella releaase. computer navighation Specimen/Specimens Removed: synovium/abio spacer/bone Estimated Blood Loss: EBL {In ML}: 125 Blood Products Given: PRBC Drains Used: Hemovac, Wound Vac Post-Op Condition: Fair Date of Surgery/Procedure: 05/01/18 Time of Surgery/Procedure: 09:15 (time ihn room/anaesthesia oimndcjution time 8:05)
[2018-05-01] MEDS ORDERED: Dexamethasone 4 mg/1 ml IVP PRN (12:51)
--- NOTE | 2018-05-01 12:57 | PCM.ANESB3 ---
Femoral Nerve Block - Femoral Nerve Block Date of Procedure: 05/01/18 Anesthesiologist: Zander Augustin Pre-Procedure Diagnosis: L knee pain Post-Procedure Diagnosis: L knee pain Procedure Performed: Femoral Nerve Block Left - Procedure Femoral Nerve Block: The procedure was explained to the patient that it is for the post-operative pain management. Consent was obtained after a thorough discussion with the patient regarding the benefits and possible complications of local anesthetic block of the femoral nerve at the inguinal crease area. The patient was brought to the operating room and standard monitors were applied. Time-out was held with the circulating nurse to confirm the correct surgery and the appropriate block. After the procedure under general anesthesia, patient was placed in supine position with fully extended lower extremities and the L groin exposed. The femoral artery was then carefully palpated. The ultrasound transducer was then applied to this area in the transverse plane and the femoral nerve was visualized lateral to the femoral artery and underneath the fascia iliaca. After thorough identification, the inguinal crease area was prepped with Chloroprep. At this point, a #22 gauge Stimuplex 2-inch needle was inserted immediately lateral to the femoral artery pulse at the inguinal crease and advanced perpendicularly. The needle was inserted to the ultrasound transducer in-plane towards the femoral nerve in a [id number] direction. Needle advancement was performed carefully under direct ultrasound visualization. Nerve stimulator was used and twitch of the quadriceps muscle was obtained at current of 0.8 MA. After negative aspiration, 30cc of 0.25% bupivacaine with 1:[id number] was injected in 5cc increments. Under ultrasound guidance the local anesthetics were observed spreading below fascia iliaca and around the femoral nerve. The needle was removed intact and sterile dressing was applied. The patient had stable vital signs, was conscious and in no apparent distress. The patient tolerated the femoral nerve block well with stable vital signs and was prepared for subsequent surgery.
[2018-05-01] MEDS: HYDROmorphone 0.5 mg/0.5 ml ISec IVP PRN ×5 (13:00→14:30)
[2018-05-01] MEDS ORDERED: Linezolid 600 mg in D5W 300 ml 600 MG/300 ML BAG IVPB SCH (13:15)
--- NOTE | 2018-05-01 14:00 | RAD ---
Date of service: 05/01/2018 PROCEDURE: Portable left knee HISTORY: s/p L revision TKA COMPARISON: 12/19/2017 preoperative study TECHNIQUE: AP and lateral portable views FINDINGS: Satisfactory position alignment of left TKA. Expected postoperative findings in the adjacent soft tissues. IMPRESSION: Satisfactory postoperative status.
[2018-05-01 14:14] LABS: SYNOVIAL FLUID MONO/MACROPHAGE 4 % (0-0)
[2018-05-01] MEDS ORDERED: HYDROmorphone 0.5 mg/0.5 ml ISec IVP ONE (15:00)
[2018-05-01] MEDS: Cefepime 1 GM in Sodium Chloride 0.9% 100 ML IVPB SCH (15:20)
--- NOTE | 2018-05-01 15:59 | OP ---
PROCEDURE DATE: 05/01/2018 LOCATION: [facility]. PREOPERATIVE DIAGNOSES: Status post septic left total knee replacement arthroplasty with removal of components and insertion of antibiotic impregnated spacer at [facility]. OPERATIVE FINDINGS: 1. Status post septic left total knee replacement with insertion of antibiotic impregnated spacer. The joint is now sterile with a negative Gram stain. 2. Synovitis, anterior and posterior. 3. Posterior capsular contracture. 4. Lateral patellar retinacular contracture. SURGEON: Geovanny Mcgregor MD OCULAR CARE TECHNICIAN: MIGEL Malone, certified registered nursing pediatric medical assistant. SECOND COMPRESSOR MECHANIC BUS: Lalit Suh PA-C OPERATIONS PERFORMED: 1. Complex revision, left total knee replacement. 2. Repair and reinforcement of left patellar ligament. 3. Anterior and posterior synovectomy. 4. Posterior capsular release. 5. Lateral patellar retinacular release. 6. Computer navigation. 7. Excision of skin, subcutaneous tissue and muscle. SPECIMENS REMOVED: Synovium, antibiotic spacer, bone and cartilage. BLOOD LOSS: Approximately 125 mL. BLOOD PRODUCTS GIVEN: 1 unit packed cells. DRAINS USED: 1. Hemovac. 2. PAULINO wound VAC. POSTOPERATIVE CONDITION: The patient is stable in recovery. TIME OF PROCEDURE: Incision time 09:17, time in the room, anesthesia induction time 08:05. OPERATIVE INDICATION: Mg Barnett is a 58-year-old gentleman, who is now status post a septic knee replacement, which was treated at [facility] in [place] with removal of the components and insertion of antibiotic impregnated spacer. The patient, by his own volition, transferred to care. He was unhappy with the previous care. The patient had been aspirated. The aspirate was negative most recently and the patient presents at this point in time for definitive revision. Pros, cons, risks and benefits of surgical revision were discussed. The possibility of stiffness, mechanical failure, recurrent infection, thromboembolic disease, possibility of secondary or tertiary surgery was discussed. The patient could no longer withstand the discomfort and wished the surgery be accomplished. OPERATIVE PROCEDURE: After having obtained informed consent in the above fashion, after having identified side, site and procedure and a critical pause/time-out, after the satisfactory induction of the anesthetic, general endotracheal regional block anesthesia by Dr. Zander Augustin, the patient identified as Mg Barnett, in the supine position, all bony prominence of the left lower extremity was prepped and free draped in usual fashion for lower extremity surgery. The original incision was a lateral approach for the original index arthroplasty. The surgeon at [facility] made a medial approach. The skin bridge was 9 cm, so we feel confident in extending the medial incision three fingerbreadths distally and proximally to preserve that skin bridge. The skin incision was carried down through the skin and subcutaneous tissue. After having exsanguinating the limb using a 6-inch Esmarch bandage, tourniquet which had been applied was inflated to 350 mmHg. An ellipse of skin was removed with skin and subcutaneous tissue and muscle. The ellipse was removed and the dissection is carried around medially and lateral to the area of the lateral patellar retinaculum and the medial retinaculum superficial to the fascia on the vastus medialis. A medial arthrotomy was accomplished. There was found to be an exuberant synovitis and extensive anterior synovectomy was accomplished at this point in time. The patient had a fixed contracture of approximately 52 degrees preoperatively. At this point in time, dissection was carried around posteromedially to the direct head of the semimembranosus tendon and posteriorly. A portion of the patellar ligament is elevated. The patient has exuberant scar underneath the quadriceps expansion and an extensive anterior and posterior synovectomy was accomplished. At this point in time, taking great care to keep the flap deep, hugging the lateral aspect of the knee, the lateral retinaculum was exposed. A lateral patellar retinacular release was accomplished extensively and an ellipse of skin was removed from the lateral patellar retinaculum. This having been accomplished, this was carried proximally to allow for eversion of the patella. Hemostasis was controlled with the Aquamantys. The patella was everted. Anterior synovectomy was completed and the synovium around the patella, which was virgin was excised as well. The synovial reflection was defined and excised. At this point in time, the patella was everted. The knee is flexed. Medial and lateral retractors were placed and the tibia was dislocated anteriorly and the initial osteotomy of the arthroplasty was accomplished on the tibial side. A portion of the iliotibial band was released. The plane between the antibiotic impregnated spacer and the cement was developed using the oscillating saw and the antibiotic impregnated spacer was removed. At this point in time, computer navigation commences. The anterior strut for the knee align accelerometer based computer navigation is placed. The offset was defined as the area of the posterior insertion of the anterior cruciate ligament. Offset was defined. At this point, the sensor and the accelerometer placed. Lateral malleolus was registered with medial malleolus. Varus-valgus was set to 0 degrees, posterior slope was set to 0 degrees and a 2-mm cut was accomplished and was found to be excellent. Retained cement removed. Attention was turned to the femur. The plane between the cement and the antibiotic impregnated spacer was developed using a small bunion type saw and this was continued with the high-speed [employer] [place] drill. That plane having been developed, the Accu-Emir was used to develop that plane and the spacer was removed with minimal blood loss. This having been accomplished, the guide pin was placed above the intercondylar notch and the distal cutting guide was placed. The accelerometer was placed as was the sensor. The hip center was found and the cut was set to one-half degree flexion and 0 degrees varus-valgus on the mechanical axis. The distal cut was brought out distally approximately 5 mm. The distal cut having been accomplished, the bone loss having been accounted for, 5 mm distal wedges will be applied. The distal femoral osteotomy was accomplished. The intramedullary canal was found. A #3 block was placed accordingly and along the epicondylar axis. Anterior and posterior osteotomies were accomplished as well as chamfer cuts and this having been accomplished, the reaming was carried out to a 14-mm reamer and the 18-mm was placed. The box cut was accomplished and this having been accomplished, the tibia was prepared. The tibia was reamed to a 14-mm reamer. Guidance rotation of the lateral aspect of the tibial condyle, mid malleolar axis, medial third of to the tuberosity. Femoral trial was placed, #3 with 5-mm augments posteriorly and anteriorly and distally, and the 22-mm polyethylene employed. Flexion/extension gap was found to be excellent. Attention was turned to the patella. The patella was measured to 29 mm. Freehand patella osteotomy was accomplished, reaming to a 35 mm patella. Lateral patellar retinacular release was completed. Hemostasis controlled with the Aquamantys. Flexion/extension balance was excellent. Patella balance was excellent. At this point in time, the femur, tibia and patella were prepared. The #3 stemmed femoral component was applied with 5 mm wedges distally and posteriorly. The #4 tibia was placed with a 22-mm polyethylene. Screw was impacted. At this point in time, the 35 mm patella was cemented and the patellar ligament is repaired using the PEEK Arthrex anchor. The patellar ligament was repaired and reinforced in that fashion. Closure was in layers after the tourniquet was deflated and extensive irrigation. Closure was with interrupted Arthrex, #1 Vicryl followed by 0 Vicryl, 2-0 Vicryl and jake for skin over an 8-inch suction Hemovac drain. Kvng Mendenhall compression dressing and PAULINO wound VAC were applied. Geovanny Mcgregor MD [facility] # [id number]
[2018-05-01] MEDS: Lactated Ringer's 1,000 ML IV SCH ×2 (16:42→23:00)
[2018-05-01] MEDS ORDERED: ceFAZolin 2 GM in Sodium Chloride 0.9% 100 ML IVPB SCH (17:00)
[2018-05-01] MEDS ORDERED: Sodium Chloride 0.9% 500 ML IV ONE (18:51)
[2018-05-01] MEDS: oxyCODONE 5 mg Immediate Release Tab PO PRN (20:28)
[2018-05-01] MEDS ORDERED: oxyCODONE 10 mg Immediate Release Tab PO SCH (21:00)
[2018-05-02] MEDS ORDERED: Linezolid 600 mg in D5W 300 ml 600 MG/300 ML BAG IVPB SCH (06:00)
[2018-05-02 06:01] LABS: HEMOGLOBIN 10.1 g/dL (12.0-18.0); MEAN CELL VOLUME 64.4 fl (80.0-94.0); MEAN CORPUSCULAR HEMOGLOBIN 21.1 pg (27.0-31.0); MEAN CORPUSCULAR HGB CONC 32.7 g/dL (33.0-37.0); RBC 4.81 Mil/uL (4.40-5.90); RED CELL DISTRIBUTION WIDTH 17.8 % (11.5-14.5); WHITE BLOOD COUNT 8.3 K/uL (4.8-10.8)
[2018-05-02 06:38] LABS: BLOOD UREA NITROGEN 19 mg/dl (9-20); CALCIUM 8.2 mg/dL (8.4-10.2); GFR NON-AFRICAN AMERICAN 57
--- NOTE | 2018-05-02 07:37 | CP.PCM.PN ---
Subjective - Date & Time of Evaluation Date of Evaluation: 05/02/18 Time of Evaluation: 07:20 - Subjective Subjective: Patient seen and examined at bedside. C/o 8/10 pain this AM. No acute events overnight. Denies CP/SOB/N/V/D/fever/SWENSON. Objective - Vital Signs/Intake and Output Vital Signs (last 24 hours): Temp Pulse Resp BP Pulse Ox 100.2 F H 110 H 20 160/86 H 95 05/02/18 04:28 05/02/18 04:28 05/02/18 04:28 05/02/18 04:28 05/02/18 04:28 - Medications Medications: Current Medications Acetaminophen (Tylenol 325mg Tab) 650 mg PO Q4 PRN PRN Reason: Fever 101 degrees fahrenheit Last Admin: 05/01/18 19:53 Dose: 650 mg Docusate Sodium (Colace) 100 mg PO BID [facility] Last Admin: 05/01/18 16:52 Dose: 100 mg Enoxaparin Sodium (Lovenox) 40 mg SC DAILY [facility]; Protocol Ferrous Sulfate (Feosol) 325 mg PO TID [facility] Last Admin: 05/01/18 16:52 Dose: 325 mg Folic Acid (Folic Acid) 1 mg PO DAILY [facility] Hydromorphone HCl (Dilaudid) 4 mg PO Q4 PRN PRN Reason: Pain, moderate (4-7) Last Admin: 05/02/18 03:29 Dose: 4 mg Hydromorphone HCl (Dilaudid) 0.5 mg IVP Q3 PRN PRN Reason: Pain, severe (8-10) Last Admin: 05/02/18 07:21 Dose: 0.5 mg Lactated Ringer's (Lactated Ringer's) 1,000 mls @ 100 mls/hr IV .Q10H [facility] Last Admin: 05/01/18 23:00 Dose: 100 mls/hr Acetaminophen (Ofirmev) 100 mls @ 400 mls/hr IVPB Q8H [facility]; Protocol Stop: 05/02/18 13:01 Last Admin: 05/02/18 04:21 Dose: 400 mls/hr Cefepime HCl 1 gm/ Sodium (Chloride) 100 mls @ 100 mls/hr IVPB DAILY [facility]; Protocol Last Admin: 05/01/18 15:20 Dose: 0 mls Linezolid (Zyvox 600mg/300ml D5w) 600 mg in 300 mls @ 300 mls/hr IVPB Q12@0600,1800 [facility]; Protocol Last Admin: 05/02/18 05:28 Dose: 300 mls/hr Meperidine HCl (Demerol) 12.5 mg IVP Q5M PRN PRN Reason: Shivering/Rigor Ondansetron HCl (Zofran Inj) 4 mg IVP ONCE PRN PRN Reason: Nausea/Vomiting Oxycodone HCl (Oxycodone Immediate Release Tab) 15 mg PO Q8 PRN PRN Reason: Pain, moderate (4-7) Last Admin: 05/01/18 20:28 Dose: 15 mg - Labs Labs: 05/02/18 05:25 05/02/18 05:25 - Extremities Exam Additional comments: L knee: knee imm in place, dressings CDI PAULINO intact, Hemovac in place with mild bloody drainage (120cc blood output overnight) sensation intact SP/DP/TN motor intact EHL/FHL/TA/G pedal pulses intact comps soft NT b/l Assessment and Plan (1) Septic joint of left knee joint Assessment & Plan: POD#1 s/p L revision TKA -pain management consult ordered -DVT ppx -PT/OT FWB -maintain dressings and drain, continue to monitor output -knee imm/CPM as per order -above d/w Dr. Mcgregor in agreement Status: Acute
[2018-05-02] MEDS: Lactated Ringer's 1,000 ML IV SCH ×2 (08:53→19:48)
[2018-05-02] MEDS: Cefepime 1 GM in Sodium Chloride 0.9% 100 ML IVPB SCH (10:25)
--- NOTE | 2018-05-02 10:56 | CP.PCM.PN ---
Addendum entered and electronically signed by Cindi Esquivel DPM 05/03/18 06:51: Original Note: <Cindi Esquivel - Last Filed: 05/02/18 10:51> Subjective - Date & Time of Evaluation Date of Evaluation: 05/02/18 Time of Evaluation: 10:51 - Subjective Subjective: 58 y/o male patient was seen and evaluated at bedside. Patient complains of severe pain, and states he is anxious at this time. Patient reports he takes Xanax as needed at home for anxiety. Patient denies any urinary complaints, ch est pain, SOB, nausea, or vomiting. Patient's BP when evaluated was 163/99 with pulse rate at 111 Objective - Vital Signs/Intake and Output Vital Signs (last 24 hours): Temp Pulse Resp BP Pulse Ox 99.9 F H 108 H 20 176/109 H 96 05/02/18 08:26 05/02/18 09:57 05/02/18 08:26 05/02/18 09:57 05/02/18 09:57 - Medications Medications: Current Medications Acetaminophen (Tylenol 325mg Tab) 650 mg PO Q4 PRN PRN Reason: Fever 101 degrees fahrenheit Last Admin: 05/01/18 19:53 Dose: 650 mg Alprazolam (Xanax) 0.25 mg PO DAILY [facility] Stop: 05/10/18 09:01 Last Admin: 05/02/18 10:27 Dose: 0.25 mg Docusate Sodium (Colace) 100 mg PO BID [facility] Last Admin: 05/02/18 08:56 Dose: 100 mg Enoxaparin Sodium (Lovenox) 40 mg SC DAILY [facility]; Protocol Ferrous Sulfate (Feosol) 325 mg PO TID [facility] Last Admin: 05/02/18 08:56 Dose: 325 mg Folic Acid (Folic Acid) 1 mg PO DAILY [facility] Last Admin: 05/02/18 08:56 Dose: 1 mg Hydromorphone HCl (Dilaudid) 4 mg PO Q4 PRN PRN Reason: Pain, moderate (4-7) Last Admin: 05/02/18 08:56 Dose: 4 mg Hydromorphone HCl (Dilaudid) 1 mg IVP Q3 PRN PRN Reason: Pain, severe (8-10) Last Admin: 05/02/18 09:42 Dose: 1 mg Lactated Ringer's (Lactated Ringer's) 1,000 mls @ 100 mls/hr IV .Q10H [facility] Last Admin: 05/01/18 23:00 Dose: 100 mls/hr Acetaminophen (Ofirmev) 100 mls @ 400 mls/hr IVPB Q8H [facility]; Protocol Stop: 05/02/18 13:01 Last Admin: 05/02/18 04:21 Dose: 400 mls/hr Cefepime HCl 1 gm/ Sodium (Chloride) 100 mls @ 100 mls/hr IVPB DAILY [facility]; Protocol Last Admin: 05/01/18 15:20 Dose: 0 mls Linezolid (Zyvox 600mg/300ml D5w) 600 mg in 300 mls @ 300 mls/hr IVPB Q12@0600,1800 [facility]; Protocol Last Admin: 05/02/18 05:28 Dose: 300 mls/hr Meperidine HCl (Demerol) 12.5 mg IVP Q5M PRN PRN Reason: Shivering/Rigor Ondansetron HCl (Zofran Inj) 4 mg IVP ONCE PRN PRN Reason: Nausea/Vomiting Oxycodone HCl (Oxycodone Immediate Release Tab) 15 mg PO Q8 PRN PRN Reason: Pain, moderate (4-7) Last Admin: 05/01/18 20:28 Dose: 15 mg - Labs Labs: 05/02/18 05:25 05/02/18 05:25 - Constitutional Appears: Non-toxic, In Acute Distress - Head Exam Head Exam: ATRAUMATIC, NORMOCEPHALIC - Eye Exam Eye Exam: PERRL - ENT Exam ENT Exam: Mucous Membranes Moist - Neck Exam Neck Exam: Full ROM. absent: Lymphadenopathy - Respiratory Exam Respiratory Exam: Clear to Ausculation Bilateral, NORMAL BREATHING PATTERN. absent: Rales, Rhonchi, Wheezes - Cardiovascular Exam Cardiovascular Exam: REGULAR RHYTHM, +S1, +S2. absent: RRR - GI/Abdominal Exam GI & Abdominal Exam: Soft, Normal Bowel Sounds. absent: Guarding, Rigid - Extremities Exam Extremities Exam: Normal Inspection Additional comments: PAULINO drain and HemoVac in place, with dressing intact - Neurological Exam Neurological Exam: Alert, Awake, Oriented x3 - Psychiatric Exam Psychiatric exam: Anxious Assessment and Plan - Assessment and Plan (Free Text) Assessment: 1) Left Knee Revisional TKA s/p 1 day - Continue with Incentive Spirometry - Physical Therapy/ Occupational Therapy Consult- appreciate recommendations - Routine Post-op care - Pain Control with Pain Management Consult Dr. Hall- recommendations appreciated - Dilaudid 1mg IV STAT Dose given 2) Anxiety - new onset elevated blood pressure - will monitor blood pressure - Xanax 0.25 mg PO DAILY, given STAT dose 3) DVT Prophylaxis - Lovenox 40 mg SC DAILY <Hyun Tinsley - Last Filed: 05/02/18 15:10> Objective - Vital Signs/Intake and Output Vital Signs (last 24 hours): Temp Pulse Resp BP Pulse Ox 113 F H 108 H 18 179/102 H 96 05/02/18 10:27 05/02/18 09:57 05/02/18 09:01 05/02/18 10:27 05/02/18 09:57 - Medications Medications: Current Medications Acetaminophen (Tylenol 325mg Tab) 650 mg PO Q4 PRN PRN Reason: Fever 101 degrees fahrenheit Last Admin: 05/01/18 19:53 Dose: 650 mg Alprazolam (Xanax) 0.25 mg PO DAILY [facility] Stop: 05/10/18 09:01 Last Admin: 05/02/18 10:27 Dose: 0.25 mg Docusate Sodium (Colace) 100 mg PO BID [facility] Last Admin: 05/02/18 08:56 Dose: 100 mg Enoxaparin Sodium (Lovenox) 40 mg SC DAILY [facility]; Protocol Last Admin: 05/02/18 11:25 Dose: 40 mg Ferrous Sulfate (Feosol) 325 mg PO TID [facility] Last Admin: 05/02/18 08:56 Dose: 325 mg Folic Acid (Folic Acid) 1 mg PO DAILY [facility] Last Admin: 05/02/18 08:56 Dose: 1 mg Hydromorphone HCl (Dilaudid) 4 mg PO Q4 PRN PRN Reason: Pain, moderate (4-7) Last Admin: 05/02/18 14:01 Dose: 4 mg Hydromorphone HCl (Dilaudid) 1 mg IVP Q3 PRN PRN Reason: Pain, severe (8-10) Last Admin: 05/02/18 12:41 Dose: 1 mg Lactated Ringer's (Lactated Ringer's) 1,000 mls @ 100 mls/hr IV .Q10H [facility] Last Admin: 05/01/18 23:00 Dose: 100 mls/hr Cefepime HCl 1 gm/ Sodium (Chloride) 100 mls @ 100 mls/hr IVPB DAILY [facility]; Protocol Last Admin: 05/02/18 10:25 Dose: 100 mls/hr Ondansetron HCl (Zofran Inj) 4 mg IVP ONCE PRN PRN Reason: Nausea/Vomiting Oxycodone HCl (Oxycodone Immediate Release Tab) 15 mg PO Q8 PRN PRN Reason: Pain, moderate (4-7) Last Admin: 05/02/18 11:22 Dose: 15 mg - Labs Labs: 05/02/18 05:25 05/02/18 05:25 Attending/Attestation - Attestation I have personally seen and examined this patient.: Yes I have fully participated in the care of the patient.: Yes I have reviewed all pertinent clinical information, including history, physical exam and plan: Yes Notes (Text): Additional: Pt complains of Left knee pain, not controlled with present pain regimen- Pain Mgt : Dr Hall consulted - recommended to add Oxcontin 20 q8 RTC Pt had history of Septic knee w/c was treated , he completed IV Vanco and Zyvox - ID consulted- Dr Dominguez rec IV Vanco and Cefepime CKD Stage III - cont to monitor
[2018-05-02] MEDS: oxyCODONE 5 mg Immediate Release Tab PO PRN (11:22)
[2018-05-02] MEDS: Enoxaparin 40 mg Syringe SC SCH (11:25)
--- NOTE | 2018-05-02 15:03 | CP.PCM.PN ---
Subjective - Date & Time of Evaluation Date of Evaluation: 05/02/18 Time of Evaluation: 12:56 - Subjective Subjective: I D NOTE PATIENT WELL KNOWN TO ME WILL NEED 3 TO 4 WEEKS IV ANTIBIOTIC TREATMENT ON ZYVOX AND PLATELETS HAVE DECREASED THEREFORE WILL D/C AWAIT TOMORROWS LABS WHETHER TO USE DAPTOMYCIN OR VANCOMYCIN Objective - Vital Signs/Intake and Output Vital Signs (last 24 hours): Temp Pulse Resp BP Pulse Ox 113 F H 108 H 18 179/102 H 96 05/02/18 10:27 05/02/18 09:57 05/02/18 09:01 05/02/18 10:27 05/02/18 09:57 - Medications Medications: Current Medications Acetaminophen (Tylenol 325mg Tab) 650 mg PO Q4 PRN PRN Reason: Fever 101 degrees fahrenheit Last Admin: 05/01/18 19:53 Dose: 650 mg Alprazolam (Xanax) 0.25 mg PO DAILY [facility] Stop: 05/10/18 09:01 Last Admin: 05/02/18 10:27 Dose: 0.25 mg Docusate Sodium (Colace) 100 mg PO BID [facility] Last Admin: 05/02/18 08:56 Dose: 100 mg Enoxaparin Sodium (Lovenox) 40 mg SC DAILY [facility]; Protocol Last Admin: 05/02/18 11:25 Dose: 40 mg Ferrous Sulfate (Feosol) 325 mg PO TID [facility] Last Admin: 05/02/18 08:56 Dose: 325 mg Folic Acid (Folic Acid) 1 mg PO DAILY [facility] Last Admin: 05/02/18 08:56 Dose: 1 mg Hydromorphone HCl (Dilaudid) 4 mg PO Q4 PRN PRN Reason: Pain, moderate (4-7) Last Admin: 05/02/18 14:01 Dose: 4 mg Hydromorphone HCl (Dilaudid) 1 mg IVP Q3 PRN PRN Reason: Pain, severe (8-10) Last Admin: 05/02/18 12:41 Dose: 1 mg Lactated Ringer's (Lactated Ringer's) 1,000 mls @ 100 mls/hr IV .Q10H [facility] Last Admin: 05/01/18 23:00 Dose: 100 mls/hr Cefepime HCl 1 gm/ Sodium (Chloride) 100 mls @ 100 mls/hr IVPB DAILY [facility]; Protocol Last Admin: 05/02/18 10:25 Dose: 100 mls/hr Ondansetron HCl (Zofran Inj) 4 mg IVP ONCE PRN PRN Reason: Nausea/Vomiting Oxycodone HCl (Oxycodone Immediate Release Tab) 15 mg PO Q8 PRN PRN Reason: Pain, moderate (4-7) Last Admin: 05/02/18 11:22 Dose: 15 mg - Labs Labs: 05/02/18 05:25 05/02/18 05:25
--- NOTE | 2018-05-02 15:41 | CARD ---
APPROVED REPORT Date of service: 05/02/2018 EKG Measurement Heart [id number] <Conclusion> Sinus tachycardia Otherwise normal ECG
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
[2018-05-03] MEDS: oxyCODONE 20 mg ER Tab (oxyCONTIN) PO SCH ×3 (00:56→16:49)
[2018-05-03 06:24] LABS: HEMOGLOBIN 10.1 g/dL (12.0-18.0); MEAN CELL VOLUME 64.2 fl (80.0-94.0); MEAN CORPUSCULAR HEMOGLOBIN 20.6 pg (27.0-31.0); MEAN CORPUSCULAR HGB CONC 32.1 g/dL (33.0-37.0); RBC 4.92 Mil/uL (4.40-5.90); RED CELL DISTRIBUTION WIDTH 17.6 % (11.5-14.5); WHITE BLOOD COUNT 11.4 K/uL (4.8-10.8)
[2018-05-03 06:42] LABS: BLOOD UREA NITROGEN 17 mg/dl (9-20); CALCIUM 8.4 mg/dL (8.4-10.2); GFR NON-AFRICAN AMERICAN 57
[2018-05-03] MEDS: Enoxaparin 40 mg Syringe SC SCH (08:45)
[2018-05-03] MEDS: Cefepime 1 GM in Sodium Chloride 0.9% 100 ML IVPB SCH (08:52)
--- NOTE | 2018-05-03 09:01 | CP.PCM.PN ---
Subjective - Date & Time of Evaluation Date of Evaluation: 05/03/18 Time of Evaluation: 08:45 - Subjective Subjective: 58 yo man s/p left total knee revision. Patient has had multiple surgeries in the past, and was taking Oxycodone 15mg about 2-3 tablets a day at home prior to surgery. Oxycontin 20mg was started last night, and he's had one dose thus far. He's feeling much better after the Oxycontin was started. Prior to that, Dilaudid PO and IV weren't effective. Objective - Vital Signs/Intake and Output Vital Signs (last 24 hours): Temp Pulse Resp BP Pulse Ox 101.8 F H 126 H 20 114/79 96 05/03/18 08:43 05/03/18 04:00 05/03/18 08:26 05/03/18 08:26 05/03/18 08:26 - Medications Medications: Current Medications Acetaminophen (Tylenol 325mg Tab) 650 mg PO Q4 PRN PRN Reason: Fever 101 degrees fahrenheit Last Admin: 05/03/18 08:43 Dose: 650 mg Alprazolam (Xanax) 0.5 mg PO DAILY [facility] Stop: 05/10/18 08:35 Docusate Sodium (Colace) 100 mg PO BID [facility] Last Admin: 05/03/18 08:45 Dose: 100 mg Enoxaparin Sodium (Lovenox) 40 mg SC DAILY [facility]; Protocol Last Admin: 05/03/18 08:45 Dose: 40 mg Ferrous Sulfate (Feosol) 325 mg PO TID [facility] Last Admin: 05/03/18 08:45 Dose: 325 mg Folic Acid (Folic Acid) 1 mg PO DAILY [facility] Last Admin: 05/03/18 08:45 Dose: 1 mg Hydromorphone HCl (Dilaudid) 4 mg PO Q4 PRN PRN Reason: Pain, moderate (4-7) Last Admin: 05/02/18 23:40 Dose: 4 mg Hydromorphone HCl (Dilaudid) 1 mg IVP Q3 PRN PRN Reason: Pain, severe (8-10) Last Admin: 05/03/18 06:08 Dose: 1 mg Lactated Ringer's (Lactated Ringer's) 1,000 mls @ 100 mls/hr IV .Q10H [facility] Last Admin: 05/02/18 19:48 Dose: 100 mls/hr Cefepime HCl 1 gm/ Sodium (Chloride) 100 mls @ 100 mls/hr IVPB DAILY [facility]; Protocol Last Admin: 05/03/18 08:52 Dose: 100 mls/hr Ondansetron HCl (Zofran Inj) 4 mg IVP ONCE PRN PRN Reason: Nausea/Vomiting Oxycodone HCl (Oxycontin Extended Release Tab) 20 mg PO Q8 [facility] Last Admin: 05/03/18 08:50 Dose: 20 mg - Labs Labs: 05/03/18 05:40 05/03/18 05:40 - Extremities Exam Additional comments: Knee dressing intact. Assessment and Plan - Assessment and Plan (Free Text) Assessment: 58 yo man s/p knee hardware revision. - continue Oxycontin 20mg q8h - d/c Dilaudid IV and PO - start Oxycodone 10mg q4h PRN for breakthrough, can titrate to 15mg if necessary
[2018-05-03] MEDS ORDERED: oxyCODONE 10 mg Immediate Release Tab PO PRN (09:03)
--- NOTE | 2018-05-03 10:27 | CP.PCM.PN ---
Subjective - Date & Time of Evaluation Date of Evaluation: 05/03/18 Time of Evaluation: 09:15 - Subjective Subjective: NO CHEST PAIN OR SOB FEELS BETTER TODAY WITH BETTER PAIN CONTROL Objective - Vital Signs/Intake and Output Vital Signs (last 24 hours): Temp Pulse Resp BP Pulse Ox 101.8 F H 126 H 20 114/79 96 05/03/18 08:43 05/03/18 04:00 05/03/18 08:26 05/03/18 08:26 05/03/18 08:26 - Medications Medications: Current Medications Acetaminophen (Tylenol 325mg Tab) 650 mg PO Q4 PRN PRN Reason: Fever 101 degrees fahrenheit Last Admin: 05/03/18 08:43 Dose: 650 mg Alprazolam (Xanax) 0.5 mg PO DAILY [facility] Stop: 05/10/18 08:35 Last Admin: 05/03/18 09:20 Dose: Not Given Docusate Sodium (Colace) 100 mg PO BID [facility] Last Admin: 05/03/18 08:45 Dose: 100 mg Enoxaparin Sodium (Lovenox) 40 mg SC DAILY [facility]; Protocol Last Admin: 05/03/18 08:45 Dose: 40 mg Ferrous Sulfate (Feosol) 325 mg PO TID [facility] Last Admin: 05/03/18 08:45 Dose: 325 mg Folic Acid (Folic Acid) 1 mg PO DAILY [facility] Last Admin: 05/03/18 08:45 Dose: 1 mg Lactated Ringer's (Lactated Ringer's) 1,000 mls @ 100 mls/hr IV .Q10H [facility] Last Admin: 05/02/18 19:48 Dose: 100 mls/hr Cefepime HCl 1 gm/ Sodium (Chloride) 100 mls @ 100 mls/hr IVPB DAILY [facility]; Protocol Last Admin: 05/03/18 08:52 Dose: 100 mls/hr Daptomycin 650 mg/ Sodium (Chloride) 100 mls @ 100 mls/hr IV Q48H [facility]; Protocol Stop: 05/08/18 10:01 Ondansetron HCl (Zofran Inj) 4 mg IVP ONCE PRN PRN Reason: Nausea/Vomiting Oxycodone HCl (Oxycontin Extended Release Tab) 20 mg PO Q8 [facility] Last Admin: 05/03/18 08:50 Dose: 20 mg Oxycodone HCl (Oxycodone Immediate Release Tab) 10 mg PO Q4 PRN PRN Reason: Pain, severe (8-10) - Labs Labs: 05/03/18 05:40 05/03/18 05:40 - Respiratory Exam Respiratory Exam: Clear to Ausculation Bilateral - Cardiovascular Exam Cardiovascular Exam: REGULAR RHYTHM, +S1, +S2 - Extremities Exam Additional comments: LLE WITH DRESSINGS RLE WITHOUT EDEMA Assessment and Plan - Assessment and Plan (Free Text) Assessment: REVISION OF LEFT PARTIAL KNEE REPLACEMENT SINUS TACHYCARDIA FROM PAIN AND ANXIETY AND MILD TEMPERATURE Plan: CONTINUE PAIN MEDICATIONS, ALPRAZOLAM, LOVENOX AND AND ANTIBIOTICS
--- NOTE | 2018-05-03 11:12 | CP.PCM.DIS ---
Addendum entered by Hyun Tinsley MD 05/03/18 15:23: weekly CBC Original Note: <Cindi Esquivel - Last Filed: 05/03/18 13:35> Provider - Provider Date of Admission: 05/01/18 12:38 Attending physician: Hyun Tinsley MD Primary care physician: Dr. Lucian Herrera MD Consults: Infectious Disease- Dr. Dominguez Cardiology Consult- Dr. Thomas Orthopedic Consult- Dr. Mcgregor Pain Management- Dr. Hall Time Spent in preparation of Discharge (in minutes): 30 Hospital Course - Lab Results Lab Results: Micro Results 05/01/18 10:40 Knee - Left Gram Stain - Final 05/01/18 10:40 Knee - Left Wound Culture - Preliminary No growth. 05/01/18 10:40 Knee - Left Gram Stain - Final 05/01/18 10:40 Knee - Left Wound Culture - Preliminary No growth. 05/01/18 10:40 Knee - Left Gram Stain - Final 05/01/18 10:40 Knee - Left Wound Culture - Preliminary No growth. 05/01/18 10:35 Knee - Left Gram Stain - Final 05/01/18 10:35 Knee - Left Anaerobic Culture - Final NO ANAEROBES ISOLATED. 05/01/18 10:35 Knee - Left Wound Culture - Preliminary No growth. 05/01/18 10:35 Body Fluid - Knee-Left Gram Stain - Final 05/01/18 10:35 Body Fluid - Knee-Left Anaerobic Culture - Final NO ANAEROBES ISOLATED. 05/01/18 10:35 Body Fluid - Knee-Left Body Fluid Culture - Preliminary NO GROWTH AFTER 2 DAYS 05/01/18 10:40 Knee - Left Gram Stain - Final 05/01/18 10:40 Knee - Left Wound Culture - Preliminary No growth. 05/01/18 10:40 Knee - Left Gram Stain - Final 05/01/18 10:40 Knee - Left Wound Culture - Preliminary NO GROWTH AFTER 24 HOURS 05/01/18 10:40 Knee - Left Gram Stain - Final 05/01/18 10:40 Knee - Left Wound Culture - Preliminary NO GROWTH AFTER 24 HOURS 05/01/18 10:40 Knee - Left Gram Stain - Final 05/01/18 10:40 Knee - Left Wound Culture - Preliminary NO GROWTH AFTER 24 HOURS 05/01/18 10:35 Other: Please Indicate Mycobacterial Culture - Preliminary 05/01/18 10:35 Knee Left Fungal Culture - Preliminary Most Recent Lab Values WBC 11.4 K/uL (4.8-10.8) H 05/03/18 05:40 RBC 4.92 Mil/uL (4.40-5.90) 05/03/18 05:40 Hgb 10.1 g/dL (12.0-18.0) L 05/03/18 05:40 Hct 31.6 % (35.0-51.0) L 05/03/18 05:40 MCV 64.2 fl (80.0-94.0) L 05/03/18 05:40 MCH 20.6 pg (27.0-31.0) L 05/03/18 05:40 MCHC 32.1 g/dL (33.0-37.0) L 05/03/18 05:40 RDW 17.6 % (11.5-14.5) H 05/03/18 05:40 Plt Count 100 K/uL (130-400) L 05/03/18 05:40 Sodium 135 mmol/l (132-148) 05/03/18 05:40 Potassium 4.6 MMOL/L (3.6-5.0) 05/03/18 05:40 Chloride 98 mmol/L (98-107) 05/03/18 05:40 Carbon Dioxide 33 mmol/L (22-30) H 05/03/18 05:40 Anion Gap 9 (10-20) L 05/03/18 05:40 BUN 17 mg/dl (9-20) 05/03/18 05:40 Creatinine 1.3 mg/dl (0.8-1.5) 05/03/18 05:40 Est GFR ( Amer) > 60 05/03/18 05:40 Est GFR (Non-Af Amer) 57 05/03/18 05:40 Random Glucose 117 mg/dL (75-110) H 05/03/18 05:40 Calcium 8.4 mg/dL (8.4-10.2) 05/03/18 05:40 Fluid Type Synovial fluid 05/01/18 10:40 Synovial WBC 66.0 /mm3 (0.0-150.0) 05/01/18 10:40 Synovial RBC 3870.0 /mm3 (0.0-0.0) H 05/01/18 10:40 Synovial Neutrophils 11.0 % (0-0) H 05/01/18 10:40 Synovial Lymphocytes 35.0 % (0-0) H 05/01/18 10:40 Synov Monos/Macrophage 4 % (0-0) H 05/01/18 10:40 Synovial Fluid Comment Cloudy 05/01/18 10:40 Blood Type O POSITIVE 05/01/18 07:40 Antibody Screen Negative 05/01/18 07:40 Crossmatch See Detail 05/01/18 07:40 BBK History Checked Patient has bt 05/01/18 07:40 - Hospital Course Hospital Course: 58 y/o male patient was seen and evaluated at bedside 2 days s/p Left Knee Total revision. Patient has multiple episodes of fever and tachycardia, likely secondary to surgery. Patient states he feels much better today, and the pain is well controlled. Patient denies any urinary complaints, chest pain, SOB, nausea, or vomiting. Plan: 1) Left Knee Revisional TKA s/p 2 days - Pain control as per pain management - Drain removed and dressings were changed by Orthopedic team who state patient is stable for discharge at home with home PT; CPM for home with 0 deg extension, 60 flexion, increase by 10 deg daily as tolerated. 6 hours daily 2-3 sessions. - Physical Therapy/ Occupational Therapy Consult- patient evaluated and can be discharged home with PT services and rolling walker - Cardio Consult- As per Dr. Thomas, CONTINUE PAIN MEDICATIONS, ALPRAZOLAM, LOVENOX AND ANTIBIOTICS - Infectious Disease Consult- As per Dr. Dominguez, patient to be started on IV Daptomycin for 3-4 weeks, PICC Line placed by Interventional readiology - Follow up with Dr. Mcgregor 2) Anxiety - continue home meds 3) DVT Prophylaxis - Lovenox 40 mg SC DAILY - Date & Time of H&P Date of H&P: 05/03/18 Time of H&P: 11:11 Discharge Exam - Head Exam Head Exam: ATRAUMATIC, NORMOCEPHALIC - Eye Exam Eye Exam: Normal appearance, PERRL - ENT Exam ENT Exam: Mucous Membranes Moist. absent: Mucous Membranes Dry - Neck Exam Neck exam: Full Rom - Respiratory Exam Respiratory Exam: Clear to PA & Lateral, NORMAL BREATHING PATTERN. absent: Rales, Rhonchi, Wheezes, Stridor - Cardiovascular Exam Cardiovascular Exam: Tachycardia, +S1, +S2. absent: JVD - GI/Abdominal Exam GI & Abdominal Exam: Normal Bowel Sounds, Soft. absent: Distended, Firm, Guarding - Extremities Exam Extremities exam: normal inspection Additional comments: dressing c/d/I - Neurological Exam Neurological exam: Alert, Oriented x3 - Psychiatric Exam Psychiatric exam: Normal Affect, Normal Mood - Skin Skin Exam: Normal Color Discharge Plan - Discharge Medications Prescriptions: Cefepime 1gm in NS 100ml [Maxipime 1gm] 1 gm IVPB DAILY 28 Days bag Daptomycin [Cubicin Rf] 650 mg IV QOTHERDAY 48 Days #24 vial Docusate [Colace] 100 mg PO BID #30 cap Enoxaparin [Lovenox] 40 mg SC DAILY #30 syr Ferrous Sulfate [Feosol] 325 mg PO TID #90 tab Folic Acid 1 mg PO DAILY #30 tab oxyCODONE [oxyCODONE Immediate Release Tab] 10 mg PO Q4 PRN #20 tab PRN Reason: Pain, Severe (8-10) oxyCODONE [oxyCONTIN Extended Release Tab] 20 mg PO Q8 #15 tabsr - Follow Up Plan Condition: GOOD Disposition: HOME/ ROUTINE Patient education suggested?: Yes Instructions: Total Knee Replacement (DC), Peripherally-Inserted Central Catheter (DC) Additional Instructions: lyssa infusion [phone] Mcgregor next week Home Physical therapy CPM for home with 0 deg extension, 60 flexion, increase by 10 deg daily as tolerated. 6 hours daily 2-3 sessions. Referrals: Geovanny Mcgregor III, MD [Staff Provider] - Roby Hall MD [Medical Doctor] - Clinical Quality Measures - CQM - Stroke Anticoagulation Prescribed for Atrial Flutter, Atrial Fibrillation and History of:: Not Applicable - Date & Time of Discharge Summary Date of Discharge Summary: 05/03/18 Time of Discharge Summary: 13:34 <Hyun Tinsley - Last Filed: 05/03/18 15:21> Provider - Provider Date of Admission: 05/01/18 12:38 Attending physician: Hyun Tinsley MD Hospital Course - Lab Results Lab Results: Micro Results 05/01/18 10:40 Knee - Left Gram Stain - Final 10/15/18 10:40 Knee - Left Wound Culture - Preliminary No growth. 05/01/18 10:40 Knee - Left Gram Stain - Final 05/01/18 10:40 Knee - Left Wound Culture - Preliminary No growth. 05/01/18 10:40 Knee - Left Gram Stain - Final 05/01/18 10:40 Knee - Left Wound Culture - Preliminary No growth. 05/01/18 10:40 Knee - Left Gram Stain - Final 05/01/18 10:40 Knee - Left Wound Culture - Preliminary No growth. 05/01/18 10:40 Knee - Left Gram Stain - Final 05/01/18 10:40 Knee - Left Wound Culture - Preliminary No growth. 05/01/18 10:40 Knee - Left Gram Stain - Final 05/01/18 10:40 Knee - Left Wound Culture - Preliminary No growth. 05/01/18 10:40 Knee - Left Gram Stain - Final 05/01/18 10:40 Knee - Left Wound Culture - Preliminary No growth. 05/01/18 10:35 Knee - Left Gram Stain - Final 05/01/18 10:35 Knee - Left Anaerobic Culture - Final NO ANAEROBES ISOLATED. 05/01/18 10:35 Knee - Left Wound Culture - Preliminary No growth. 05/01/18 10:35 Body Fluid - Knee-Left Gram Stain - Final 05/01/18 10:35 Body Fluid - Knee-Left Anaerobic Culture - Final NO ANAEROBES ISOLATED. 05/01/18 10:35 Body Fluid - Knee-Left Body Fluid Culture - Preliminary NO GROWTH AFTER 2 DAYS 05/01/18 10:35 Other: Please Indicate Mycobacterial Culture - Preliminary 05/01/18 10:35 Knee Left Fungal Culture - Preliminary Most Recent Lab Values WBC 11.4 K/uL (4.8-10.8) H 05/03/18 05:40 RBC 4.92 Mil/uL (4.40-5.90) 05/03/18 05:40 Hgb 10.1 g/dL (12.0-18.0) L 05/03/18 05:40 Hct 31.6 % (35.0-51.0) L 05/03/18 05:40 MCV 64.2 fl (80.0-94.0) L 05/03/18 05:40 MCH 20.6 pg (27.0-31.0) L 05/03/18 05:40 MCHC 32.1 g/dL (33.0-37.0) L 05/03/18 05:40 RDW 17.6 % (11.5-14.5) H 05/03/18 05:40 Plt Count 100 K/uL (130-400) L 05/03/18 05:40 Sodium 135 mmol/l (132-148) 05/03/18 05:40 Potassium 4.6 MMOL/L (3.6-5.0) 05/03/18 05:40 Chloride 98 mmol/L (98-107) 05/03/18 05:40 Carbon Dioxide 33 mmol/L (22-30) H 05/03/18 05:40 Anion Gap 9 (10-20) L 05/03/18 05:40 BUN 17 mg/dl (9-20) 05/03/18 05:40 Creatinine 1.3 mg/dl (0.8-1.5) 05/03/18 05:40 Est GFR ( Amer) > 60 05/03/18 05:40 Est GFR (Non-Af Amer) 57 05/03/18 05:40 Random Glucose 117 mg/dL (75-110) H 05/03/18 05:40 Calcium 8.4 mg/dL (8.4-10.2) 05/03/18 05:40 Fluid Type Synovial fluid 05/01/18 10:40 Synovial WBC 66.0 /mm3 (0.0-150.0) 05/01/18 10:40 Synovial RBC 3870.0 /mm3 (0.0-0.0) H 05/01/18 10:40 Synovial Neutrophils 11.0 % (0-0) H 05/01/18 10:40 Synovial Lymphocytes 35.0 % (0-0) H 05/01/18 10:40 Synov Monos/Macrophage 4 % (0-0) H 05/01/18 10:40 Synovial Fluid Comment Cloudy 05/01/18 10:40 Blood Type O POSITIVE 05/01/18 07:40 Antibody Screen Negative 05/01/18 07:40 Crossmatch See Detail 05/01/18 07:40 BBK History Checked Patient has bt 05/01/18 07:40 Attending/Attestation - Attestation I have personally seen and examined this patient.: Yes I have fully participated in the care of the patient.: Yes I have reviewed all pertinent clinical information, including history, physical exam and plan: Yes Notes (Text): Arrangement mage by [employer] for Home IV antibiotic Infusion - IV Cefepime 1 gram IV daily x 3-4 wks, Daptomycin 650mh IV q48hrs x 3-4 wks as recommended by Dr Dominguez. CPK , BMP level weekly- result to be faxed to Dr Dominguez CPM for home with 0 deg extension, 60 flexion, increase by 10 deg daily as tolerated. 6 hours daily 2-3 sessions. Home Physical therapy FF up with Dr Mcgregor in 1 wk
--- NOTE | 2018-05-03 11:15 | CP.PCM.PN ---
Subjective - Date & Time of Evaluation Date of Evaluation: 05/03/18 Time of Evaluation: 11:13 - Subjective Subjective: 58 y/o male patient was seen and evaluated at bedside 2 days s/p Left Knee Total revision. Patient states he feels much better today, and the pain is well controlled. Patient denies any urinary complaints, chest pain, SOB, nausea, or vomiting. Objective - Vital Signs/Intake and Output Vital Signs (last 24 hours): Temp Pulse Resp BP Pulse Ox 101.8 F H 126 H 20 114/79 96 05/03/18 08:43 05/03/18 04:00 05/03/18 08:26 05/03/18 08:26 05/03/18 08:26 - Medications Medications: Current Medications Acetaminophen (Tylenol 325mg Tab) 650 mg PO Q4 PRN PRN Reason: Fever 101 degrees fahrenheit Last Admin: 05/03/18 08:43 Dose: 650 mg Alprazolam (Xanax) 0.5 mg PO DAILY [facility] Stop: 05/10/18 08:35 Last Admin: 05/03/18 09:20 Dose: Not Given Docusate Sodium (Colace) 100 mg PO BID [facility] Last Admin: 05/03/18 08:45 Dose: 100 mg Enoxaparin Sodium (Lovenox) 40 mg SC DAILY [facility]; Protocol Last Admin: 05/03/18 08:45 Dose: 40 mg Ferrous Sulfate (Feosol) 325 mg PO TID [facility] Last Admin: 05/03/18 08:45 Dose: 325 mg Folic Acid (Folic Acid) 1 mg PO DAILY [facility] Last Admin: 05/03/18 08:45 Dose: 1 mg Lactated Ringer's (Lactated Ringer's) 1,000 mls @ 100 mls/hr IV .Q10H [facility] Last Admin: 05/02/18 19:48 Dose: 100 mls/hr Cefepime HCl 1 gm/ Sodium (Chloride) 100 mls @ 100 mls/hr IVPB DAILY [facility]; Protocol Last Admin: 05/03/18 08:52 Dose: 100 mls/hr Daptomycin 650 mg/ Sodium (Chloride) 100 mls @ 100 mls/hr IV Q48H [facility]; Protocol Stop: 05/08/18 10:01 Ondansetron HCl (Zofran Inj) 4 mg IVP ONCE PRN PRN Reason: Nausea/Vomiting Oxycodone HCl (Oxycontin Extended Release Tab) 20 mg PO Q8 [facility] Last Admin: 05/03/18 08:50 Dose: 20 mg Oxycodone HCl (Oxycodone Immediate Release Tab) 10 mg PO Q4 PRN PRN Reason: Pain, severe (8-10) - Labs Labs: 05/03/18 05:40 05/03/18 05:40 - Constitutional Appears: Well, Non-toxic, No Acute Distress - Head Exam Head Exam: ATRAUMATIC, NORMOCEPHALIC - Eye Exam Eye Exam: Normal appearance - ENT Exam ENT Exam: Mucous Membranes Moist - Neck Exam Neck Exam: Full ROM. absent: Lymphadenopathy, Meningismus - Respiratory Exam Respiratory Exam: Clear to Ausculation Bilateral. absent: Rales, Rhonchi, Wheezes - Cardiovascular Exam Cardiovascular Exam: Tachycardia, +S1, +S2. absent: JVD - GI/Abdominal Exam GI & Abdominal Exam: Soft, Normal Bowel Sounds. absent: Firm, Guarding, Rigid - Extremities Exam Extremities Exam: Normal Inspection. absent: Calf Tenderness - Back Exam Back Exam: absent: CVA tenderness (L), CVA tenderness (R) - Neurological Exam Neurological Exam: Alert, Awake, Oriented x3 - Psychiatric Exam Psychiatric exam: Anxious, Normal Mood - Skin Skin Exam: Normal Color Assessment and Plan - Assessment and Plan (Free Text) Assessment: 58 y/o 2 days s/p left total knee revision with Dr. Mcgregor. Patient experiencing episodes of sinus tachycardia due to pain and anxiety Plan: 1) Left Knee Revisional TKA s/p 2 days - Continue with Incentive Spirometry - Physical Therapy/ Occupational Therapy Consult- patient evaluated and can be discharged home with PT services and rolling walker - Routine Post-op care - Pain Control with Pain Management Consult Dr. Hall- continue Oxycontin 20mg q8h, d/c Dilaudid IV and PO, start Oxycodone 10mg q4h PRN for breakthrough, can titrate to 15mg if necessary - Cardio Consult- As per Dr. Thomas, CONTINUE PAIN MEDICATIONS, ALPRAZOLAM, LOVENOX AND ANTIBIOTICS - Infectious Disease Consult- As per Dr. Dominguez, patient to be started on IV Daptomycin for 3-4 weeks. Daptomycin 650 mg IV Q48H started - PICC Bundle Ordered for placement 2) Anxiety - new onset elevated blood pressure and sinus tachycardia - will monitor - Continue Fluids and IV Hydration - Xanax 0.5 mg PO DAILY 3) DVT Prophylaxis - Lovenox 40 mg SC DAILY
[2018-05-03 11:32] VITALS: RESP 18
--- NOTE | 2018-05-03 11:34 | CP.PCM.PN ---
Subjective - Date & Time of Evaluation Date of Evaluation: 05/03/18 Time of Evaluation: 10:00 - Subjective Subjective: Patient seen and examined OOB to chair comfortable. Pain is much improved and controlled. Tolerated PT and CPM well Objective - Vital Signs/Intake and Output Vital Signs (last 24 hours): Temp Pulse Resp BP Pulse Ox 99.4 F 115 H 18 118/59 L 99 05/03/18 11:31 05/03/18 11:31 05/03/18 11:31 05/03/18 11:31 05/03/18 11:31 - Medications Medications: Current Medications Acetaminophen (Tylenol 325mg Tab) 650 mg PO Q4 PRN PRN Reason: Fever 101 degrees fahrenheit Last Admin: 05/03/18 08:43 Dose: 650 mg Alprazolam (Xanax) 0.5 mg PO DAILY [facility] Stop: 05/10/18 08:35 Last Admin: 05/03/18 09:20 Dose: Not Given Docusate Sodium (Colace) 100 mg PO BID [facility] Last Admin: 05/03/18 08:45 Dose: 100 mg Enoxaparin Sodium (Lovenox) 40 mg SC DAILY [facility]; Protocol Last Admin: 05/03/18 08:45 Dose: 40 mg Ferrous Sulfate (Feosol) 325 mg PO TID [facility] Last Admin: 05/03/18 08:45 Dose: 325 mg Folic Acid (Folic Acid) 1 mg PO DAILY [facility] Last Admin: 05/03/18 08:45 Dose: 1 mg Lactated Ringer's (Lactated Ringer's) 1,000 mls @ 100 mls/hr IV .Q10H [facility] Last Admin: 05/02/18 19:48 Dose: 100 mls/hr Cefepime HCl 1 gm/ Sodium (Chloride) 100 mls @ 100 mls/hr IVPB DAILY [facility]; Protocol Last Admin: 05/03/18 08:52 Dose: 100 mls/hr Daptomycin 650 mg/ Sodium (Chloride) 100 mls @ 100 mls/hr IV Q48H [facility]; Protocol Stop: 05/08/18 10:01 Ondansetron HCl (Zofran Inj) 4 mg IVP ONCE PRN PRN Reason: Nausea/Vomiting Oxycodone HCl (Oxycontin Extended Release Tab) 20 mg PO Q8 [facility] Last Admin: 05/03/18 08:50 Dose: 20 mg Oxycodone HCl (Oxycodone Immediate Release Tab) 10 mg PO Q4 PRN PRN Reason: Pain, severe (8-10) - Labs Labs: 05/03/18 05:40 05/03/18 05:40 - Extremities Exam Additional comments: L knee: dressings CDI PAULINO intact with mild dry blood, Hemovac in place with mild bloody drainage (40cc blood output overnight) dressings removed, wound CDI, blisters lateral to wound healing well sensation intact SP/DP/TN motor intact EHL/FHL/TA/G pedal pulses intact comps soft NT b/l Assessment and Plan (1) Septic joint of left knee joint Assessment & Plan: POD#2 s/p L revision TKA -pain control as per pain management -DVT ppx -PT/OT FWB -drain removed and dressings changed -orthopedically stable for discharge to home with home services and home PT -CPM for home with 0 deg extension, 60 flexion, increase by 10 deg daily as tolerated. 6 hours daily 2-3 sessions. -f/u in office within 7-10 days -above d/w Dr. Mcgregor in agreement Status: Acute
[2018-05-03] MEDS ORDERED: Lidocaine 1% 5ml Abboject ONE (11:42)
--- NOTE | 2018-05-03 12:23 | PCM.SURG1 ---
Surgeon's Initial Post Op Note - Surgeon's Notes Surgeon: Peyman Peter MD House Superintendent: NONE Type of Anesthesia: Local Pre-Operative Diagnosis: Knee infection Operative Findings: Patent left basilic vein Post-Operative Diagnosis: Knee infection Operation Performed: Single lumen picc left arm, 41 CM. Tip in the SVC. Specimen/Specimens Removed: NONE Estimated Blood Loss: EBL {In ML}: 2 Blood Products Given: N/A Drains Used: No Drains Post-Op Condition: Fair Date of Surgery/Procedure: 05/03/18 Time of Surgery/Procedure: 12:00
--- NOTE | 2018-05-03 12:28 | VASCULAR ---
PROCEDURE: Date of procedure: 05/03/2018 Procedure: 1. Placement of a left arm PICC with ultrasound and fluoroscopic guidance, CPT 80271 2. PICC tip confirmation with spot radiograph and is in the superior vena cava Medications: 1 percent lidocaine Total Fluoro time: 4.6 Seconds Radiation: 1 mGy EBL: 3 cc HISTORY: Infection requiring long-term IV antibiotics TECHNIQUE: Following informed consent and procedure time-out, the patient placed supine on the interventional table and the left arm prepped and draped in the usual sterile fashion. Ultrasound showed a patent and compressible left basilic vein. After the skin was anesthetized with lidocaine, the basilic vein was accessed with micro micropuncture technique using ultrasound guidance. A guidewire was then advanced under fluoroscopic guidance into the superior vena cava. An image documenting ultrasound guidance for vascular access was permanently saved. The length of a single-lumen 4 [place] PICC was trimmed to 40 cm and advanced through a peel-away sheath. The PICC was position with tip of PICC confirm a spot radiograph the superior vena cava. The PICC was secured to the patient's skin. The PICC was flushed. A biopatch and sterile dressing was applied. IMPRESSION: Placement of a single-lumen 4 [place] PICC left basilic vein trimmed to 40 cm. The tip of the PICC is confirmed with spot radiograph and is in the superior vena cava.
--- NOTE | 2018-05-03 14:20 | PQF ---
PROVIDER RESPONSE TEXT: Thrombocytopenia unclear etiology prob sec to medication REVIEWER QUERY TEXT: Clarification of Clinical Diagnostic Findings Please clarify documentation or clinical relevance for the clinical / diagnostic findings or whether those are insignificant or unable to be further specified. Please clarify if there is an associated diagnosis or not to go along with the low platelet count Platelets: 111, 100 The patient's Clinical Indicators include: 05/02 ID: On Zyvox and platelets have decreased, therefore will D/C, await tomorrows labs whether to use Daptomycin or Vancomycin. Query created by: Helena Vang on 05/03/2018 9:54 AM Electronically signed by: Hyun Tinsley MD 05/03/2018 2:17 PM
[2018-05-03 16:27] VITALS: BP 141/88; PULSE 130; O2SAT 98
[2018-05-03 20:01] VITALS: TEMP 100
== END 2018-05-03 20:15 | disposition home health service (06) | DRG 209 ==
LOC: H.OPSURG 06:53 → H.MEDSURG1 12:38
PROVIDERS: ADMIT Internal Medicine; ATTEND Internal Medicine
PROC: 0SND0ZZ Release Left Knee Joint, Open Approach (ICD-10-PCS; 2018-05-01)
PROC: 0KBT0ZZ Excision of Left Lower Leg Muscle, Open Approach (ICD-10-PCS; 2018-05-01)
PROC: 0SPD08Z Removal of Spacer from Left Knee Joint, Open Approach (ICD-10-PCS; 2018-05-01)
PROC: 0SBD0ZZ Excision of Left Knee Joint, Open Approach (ICD-10-PCS; 2018-05-01)
PROC: 8E0YXBZ Computer Assisted Procedure of Lower Extremity (ICD-10-PCS; 2018-05-01)
PROC: 3E0T3BZ Introduction of Anesthetic Agent into Peripheral Nerves and Plexi, Percutaneous Approach (ICD-10-PCS; 2018-05-01)
PROC: 30233N1 Transfusion of Nonautologous Red Blood Cells into Peripheral Vein, Percutaneous Approach (ICD-10-PCS; 2018-05-01)
PROC: 0SRD0J9 Replacement of Left Knee Joint with Synthetic Substitute, Cemented, Open Approach (ICD-10-PCS; principal; 2018-05-01 07:45)
PROC: 0MQP0ZZ Repair Left Knee Bursa and Ligament, Open Approach (ICD-10-PCS; 2018-05-01 07:45)
PROC: 02HV33Z Insertion of Infusion Device into Superior Vena Cava, Percutaneous Approach (ICD-10-PCS; 2018-05-03)
DX: M00.9 Pyogenic arthritis, unspecified (principal); N18.3 Chronic kidney disease, stage 3 (moderate); D69.59 Other secondary thrombocytopenia; F41.9 Anxiety disorder, unspecified; I12.9 Hypertensive chronic kidney disease with stage 1 through stage 4 chronic kidney disease, or unspecified chronic kidney disease; Z89.411 Acquired absence of right great toe; Z96.642 Presence of left artificial hip joint; Z88.6 Allergy status to analgesic agent; Z88.5 Allergy status to narcotic agent; R00.0 Tachycardia, unspecified; M65.9 Synovitis and tenosynovitis, unspecified; M24.562 Contracture, left knee